=== PATIENT | female | born 1955 | race Caucasian/White ===

== ENCOUNTER 2019-12-28 10:00 | Outpatient (RCR) | payer OTHER, SELFPAY | END 2020-01-09 23:59 | LOC: NS 10:00 | PROVIDERS: PCP Family Medicine; Visit Provider Family Medicine | DX: Z71.3 Dietary counseling and surveillance (principal); E66.9 Obesity, unspecified; Z68.41 Body mass index [BMI] 40.0-44.9, adult | CPT/HCPCS: 97802; 97803 ==

== ENCOUNTER 2020-01-25 11:30 | Outpatient (RCR) | payer OTHER, SELFPAY | END 2020-02-08 23:59 | LOC: NS 11:30 | PROVIDERS: PCP Family Medicine; Visit Provider Family Medicine | DX: Z71.3 Dietary counseling and surveillance (principal); E66.9 Obesity, unspecified; Z68.41 Body mass index [BMI] 40.0-44.9, adult | CPT/HCPCS: 97803 ==

== ENCOUNTER 2020-03-06 10:00 | Outpatient (RCR) | payer OTHER, SELFPAY | END 2020-03-06 23:59 | disposition home or self-care (01) | LOC: NS 10:00 | PROVIDERS: PCP Family Medicine; Visit Provider Family Medicine | DX: Z71.3 Dietary counseling and surveillance (principal); E66.9 Obesity, unspecified; Z68.41 Body mass index [BMI] 40.0-44.9, adult | CPT/HCPCS: 97803 ==

== ENCOUNTER 2021-07-22 09:20 | Observation (INO) | payer OTHER, SELFPAY ==
[2021-07-22] VITALS (11 sets, daily range): BP systolic 122–158; BP diastolic 73–101; PULSE 68–88; RESP 16–21; TEMP 35.9–37.1; O2SAT 92–99; BMI 45.1; BMI 44.8
--- NOTE | 2021-07-22 09:39 | EKG12_ITS ---
Test Reason : SOB Blood Pressure : / mmHG Vent. Rate : 079 BPM Atrial Rate : 079 BPM P-R Int : 182 ms QRS Dur : 078 ms QT Int : 382 ms P-R-T Axes : 030 -06 019 degrees QTc Int : 438 ms Normal sinus rhythm Low voltage QRS (Precordial Leads) Confirmed by JUSTIN ROMERO, SUSSY ([id number]), scientific editor NIC QUIÑONES ([id number]) on 07/25/2021 10:00:11 AM Referred By: JAM Confirmed By:SUSSY ANDERSON MD
--- NOTE | 2021-07-22 09:40 | EDS_ITS ---
HPI History of Present Illness Chief Complaint: Shortness of Breath Informant: patient Onset/Context/Timing Onset: Days (7 days) Context: Gradual Onset Timing: Waxes and wanes Current Severity: Moderate Maximum Severity: Moderate Narrative Narrative: Patient presents with a 1 week history of shortness of breath. Matt aguilar states last Thursday she came home from work feeling very shaky and short of breath. She denies chest pain or palpitations. She gets significantly short of breath with any exertion. She states she has felt warm but has not measured a temperature. She recently did a home Covid test that was negative. She called her PCP but could not be seen until later this week so presented to the emergency room. [facility] Medical History Acid reflux High cholesterol Hypertension Hypothyroid Kidney stones Home Medications atenolol 50 mg PO DAILY 07/22/21 [History Last Taken Unknown] levothyroxine [Synthroid] 50 mcg PO DAILY 07/22/21 [History Last Taken Unknown] naproxen 500 mg PO BID PRN 07/22/21 [History Last Taken Unknown] omeprazole 40 mg PO DAILY 07/22/21 [History Last Taken Unknown] simvastatin 20 mg PO QHS 07/22/21 [History Last Taken Unknown] Allergy/AdvReac Type Severity Reaction Status Date / Time No Known Allergies Allergy Verified 07/22/21 09:20 Surgical History H/O: hysterectomy History of knee replacement Hx of tonsillectomy Social History Smoking Status: Never smoker ROS ROS ED Constitutional Constitutional ED: Denies chills or fever(s) Eyes Eyes: Denies change in vision ENT ENT ED: Denies sore throat Cardiovascular Cardiovascular: Denies chest pain or palpitations Respiratory/Chest Respiratory/Chest: Reports dyspnea; Denies cough Gastrointestinal Gastrointestinal: Denies abdominal pain, diarrhea, nausea or vomiting Genitourinary Genitourinary ED: Denies dysuria Musculoskeletal Musculoskeletal: Denies back pain or neck pain Integumentary Denies rash Neurologic Neurologic: Denies headache(s) or weakness Allergic/Immunologic Allergic/Immunologic ED: Denies urticaria EXAM Physical Exam Const Vital Signs: 07/22/21 09:21 07/22/21 09:32 Temperature 96.7 F L 98.1 F Temperature Source Temporal Oral Pulse Rate 88 80 Respiratory Rate 17 21 H Respiratory Effort Short of Breath Labored Respiratory Depth Shallow Respiratory Pattern Tachypnea Blood Pressure 143/101 H 138/85 H Blood Pressure Mean 115 102 Pulse Ox 98 98 Oxygen Delivery Method Room Air Room Air Positive well nourished and well developed General Appearance ED: well developed HEENT Reports moist mucous membranes Eyes PERRL and EOMs intact bilaterally Neck no lymphadenopathy and supple Chest Wall inspection of chest normal and palpation of chest normal Resp normal respiratory effort and clear to auscultation bilaterally Cardio regular rate and regular rhythm GI non-tender Palpation: soft Extremity normal to inspection Extremity Narrative: 1+ bilateral lower extremity edema, symmetric General Extremety ED: Yes edema General Extremity: edema Neuro oriented x3 Sensorium / Orientation: alert Psych mental status grossly normal Skin no rashes or lesions noted MDM MDM MDM Narrative Medical decision making narrative: Lab work and chest x-ray obtained. Lab Data Attestation: I reviewed the patient's lab results. Labs: Laboratory Results - last 24 hr 07/22/21 07/22/21 07/22/21 10:00 10:35 10:35 WBC Cancelled Corrected WBC Cancelled RBC Cancelled Hgb Cancelled Hct Cancelled MCV Cancelled MCH Cancelled MCHC Cancelled RDW Std Deviation Cancelled RDW Coeff of Altaf Cancelled Plt Count Cancelled MPV Cancelled Immature Gran % (Auto) Cancelled Neut % (Auto) Cancelled Lymph % (Auto) Cancelled [place] % (Auto) Cancelled Eos % (Auto) Cancelled Baso % (Auto) Cancelled Absolute Neuts (auto) Cancelled Absolute Lymphs (auto) Cancelled Total Counted Cancelled Neutrophils % (Manual) Cancelled Band Neutrophils % Cancelled Lymphocytes % (Manual) Cancelled Monocytes % (Manual) Cancelled Eosinophils % (Manual) Cancelled Basophils % (Manual) Cancelled Metamyelocytes % Cancelled Myelocytes % Cancelled Promyelocytes % Cancelled Blast Cells % Cancelled Plasma Cell % (Manual) Cancelled Other Cells % Cancelled Nucleated RBC % Cancelled Nucleated RBCs/100 WBC Cancelled Differential Comment Cancelled Diff Path Review Cancelled Hypersegmented Neuts Cancelled Atypical Lymphocytes Cancelled Reactive Lymphocytes Cancelled Smudge Cells Cancelled Toxic Granulation Cancelled Toxic Vacuolation Cancelled Dohle Bodies Cancelled Duc Rods Cancelled Platelet Estimate Cancelled Plt Morphology Comment Cancelled RBC Morphology Cancelled Polychromasia Cancelled Hypochromasia Cancelled Poikilocytosis Cancelled Basophilic Stippling Cancelled Anisocytosis Cancelled Microcytosis Cancelled Macrocytosis Cancelled Spherocytes Cancelled Sickle Cells Cancelled Target Cells Cancelled Tear Drop Cells Cancelled Ovalocytes Cancelled Stomatocytes Cancelled Srinivasan-[place] Bodies Cancelled [place] Cells Cancelled Bite Cells Cancelled Crenated Cell Cancelled Acanthocytes (Spur) Cancelled Rouleaux Cancelled Schistocytes Cancelled D-Dimer Quant (PE/DVT) 2.25 H* Sodium 136 Potassium 4.2 Chloride 104 Carbon Dioxide 27.0 Anion Gap 5 BUN 19 H Creatinine 0.75 Estim Creat Clear Calc 66.30 Est GFR (MDRD) Af Amer 100 Est GFR (MDRD) Non-Af 83 BUN/Creatinine Ratio 25.3 H Glucose 179 H Calcium 7.9 L Troponin I High Sens 9 B-Natriuretic Peptide 07/22/21 07/22/21 10:35 10:35 WBC 12.9 H Corrected WBC RBC 4.55 Hgb 13.7 Hct 40.3 MCV 88.6 MCH 30.1 MCHC 34.0 RDW Std Deviation 46.7 H RDW Coeff of Altaf 14.7 H Plt Count 220 MPV 9.1 Immature Gran % (Auto) 0.900 Neut % (Auto) 48.5 Lymph % (Auto) 42.7 H [place] % (Auto) 6.6 Eos % (Auto) 0.1 Baso % (Auto) 1.2 H Absolute Neuts (auto) 6.3 Absolute Lymphs (auto) 5.51 H Total Counted Neutrophils % (Manual) Band Neutrophils % Lymphocytes % (Manual) Monocytes % (Manual) Eosinophils % (Manual) Basophils % (Manual) Metamyelocytes % Myelocytes % Promyelocytes % Blast Cells % Plasma Cell % (Manual) Other Cells % Nucleated RBC % 0 Nucleated RBCs/100 WBC Differential Comment COMMENT Diff Path Review Hypersegmented Neuts Atypical Lymphocytes Reactive Lymphocytes 1+ Smudge Cells Toxic Granulation Toxic Vacuolation Dohle Bodies Duc Rods Platelet Estimate Plt Morphology Comment RBC Morphology Polychromasia Hypochromasia Poikilocytosis Basophilic Stippling Anisocytosis Microcytosis Macrocytosis Spherocytes Sickle Cells Target Cells Tear Drop Cells Ovalocytes Stomatocytes Srinivasan-[place] Bodies Maxi Cells Bite Cells Crenated Cell Acanthocytes (Spur) Rouleaux Schistocytes D-Dimer Quant (PE/DVT) Sodium Potassium Chloride Carbon Dioxide Anion Gap BUN Creatinine Estim Creat Clear Calc Est GFR (MDRD) Af Amer Est GFR (MDRD) Non-Af BUN/Creatinine Ratio Glucose Calcium Troponin I High Sens B-Natriuretic Peptide 15.1 Radiography Chest X-Ray - ED: 1 View, Read by ED Physician and Chronic Changes Diagnostic Testing: Clinical Impression(s) from Imaging Studies Chest X-Ray 07/22/21 10:03 IMPRESSION: No radiographic evidence of acute cardiopulmonary disease. at 1018 Reported and signed by: Joseph Hernandez MD Electronically Signed: Joseph Hernandez MD at 10:17 EDT , Chest CTA 07/22/21 11:23 IMPRESSION: 1. No evidence of acute pulmonary embolism. 2. No acute cardiopulmonary abnormality. Individualized dose optimization techniques were used for this CT. at 1203 Reported and signed by: Joseph Hernandez MD Electronically Signed: Joseph Hernandez MD at 12:01 EDT , EKG Initial EKG: Attestation: I personally reviewed and interpreted this EKG as follows: Interpretation: Sinus Rhythm (Sinus at 79 with no acute ischemia.) Treatment and Re-Evaluation Narrative: EKG per my interpretation reveals no acute ischemia. Chest x-ray reveals no focal infiltrate. Radiology interpretation also reviewed. Lab work reveals mildly elevated white count at 12.9. No left shift noted. Chemistry studies significant for glucose of 179. Patient states she has not eaten yet today. D-dimer is elevated at 2.25. CTA of the chest is obtained and unremarkable. On repeat evaluation patient lying in bed. She does become dyspneic just with conversation. I will speak with hospitalist regarding admission as this may be cardiovascular in nature. Repeat troponin will be drawn at this time along with a hemoglobin A1c. Discharge Plan Triage Chief Complaint: Shortness of Breath ED Provider: Beth Strickland Dx/Rx/DC Orders Clinical Impression: Dyspnea Prescriptions: No Action omeprazole 40 mg capsule,delayed release(DR/EC) 40 mg PO DAILY RF: 0 levothyroxine [Synthroid] 50 mcg tablet 50 mcg PO DAILY RF: 0 simvastatin 20 mg tablet 20 mg PO QHS RF: 0 atenolol 50 mg tablet 50 mg PO DAILY RF: 0 naproxen 500 mg Tablet 500 mg PO BID PRN (Reason: Pain) RF: 0 Primary Care Provider: Waldo Barrett Referrals: Waldo Barrett MD [Primary Care Provider] - Disposition Disposition: Acute Care Hospital [facility]
--- NOTE | 2021-07-22 09:43 | NURSING ---
NO OLD EKGS
--- NOTE | 2021-07-22 10:03 | RAD_ITS ---
History: sob EXAMINATION/TECHNIQUE: XR Chest 1 View: Portable COMPARISON: None FINDINGS: LINES/DEVICES: None. LUNGS: No consolidation, edema or effusion. No pneumothorax. MEDIASTINUM AND CARDIOVASCULAR STRUCTURES: Cardiac silhouette not enlarged. Central airways and mediastinal contour are unremarkable. BONES AND SOFT TISSUES: Unremarkable. RAD/Chest 1 View (Portable) IMPRESSION: No radiographic evidence of acute cardiopulmonary disease. at 1018 Reported and signed by: Joseph Hernandez MD Electronically Signed: Joseph Hernandez MD at 10:17 EDT ,
[2021-07-22 10:47] LABS: Absolute Lymphocyte Count 5.51 X10^3/uL (0.83-4.51); Absolute Neutrophil Count 6.3 X10^3/uL (2.0-7.7); Basophil# 0.15 X10^3/uL; Basophil% 1.2 % (0-1); Eosinophil# 0.01 X10^3/uL; Eosinophils% 0.1 % (0-5); Hematocrit 40.3 % (37-47); Hemoglobin 13.7 g/dL (12.0-15.0); Lymphocyte # 5.51 X10^3/ul (0.83-4.51); Lymphocyte % 42.7 % (19-41); Mean Corpuscular Hgb 30.1 pg (27.0-32.0); Mean Corpuscular Volume 88.6 fL (81-99); Mean Platelet Vol. 9.1 fl (6.2-12.0); Monocyte# 0.85 X10^3/uL; Monocyte% 6.6 % (0-10); NRBC Flagged by Analyzer 0 % (0-5); Neutrophil # 6.28 X10^3/uL (2.7-7.7); Neutrophil % 48.5 % (47-70); POSITIVE DIFFERENTIAL YES; POSITIVE MORPHOLOGY YES; Platelet Count 220 K/mm3 (150-450); RBC Distribution Width CV 14.7 % (11.6-14.6); RBC Distribution Width SD 46.7 fl (35.1-43.9); Red Blood Count 4.55 M/mm3 (4.2-5.4); White Blood Count 12.9 K/mm3 (4.4-11.0)
[2021-07-22 10:48] LABS: Differential Indicated SCAN CRITERIA MET
[2021-07-22 11:06] LABS: Reactive Lymphocyte 1+
[2021-07-22 11:07] LABS: Anion Gap 5 (5-15); BUN 19 mg/dL (7-18); BUN/Creat Ratio 25.3 RATIO (10-20); Calcium,Total 7.9 mg/dL (8.5-10.1); Chloride 104 mmol/L (98-107); Creatinine, Serum 0.75 mg/dL (0.55-1.02); EST Glomerular Filtration Rate 83 mL/min (>60); Est Glom Filt Rate - Afr Amer 100 mL/min (>60); Glucose 179 mg/dL (74-106); Potassium 4.2 mmol/L (3.5-5.1); Sodium Level 136 mmol/L (136-145); Troponin-I HS 9 pg/mL (3.0-54.0)
[2021-07-22 11:15] LABS: D-Dimer Quantitative (DVT/PE) 2.25 FEU/ug/m (0.27-0.49)
[2021-07-22 11:20] LABS: BNP,B-Type NATRIURETIC PEPTIDE 15.1 pg/mL (0-100)
--- NOTE | 2021-07-22 11:23 | CT_ITS ---
EXAM: CT ANGIOGRAPHY CHEST WITHOUT AND WITH INTRAVENOUS CONTRAST : 1955 CLINICAL INDICATION: sob TECHNIQUE: Helically acquired angiography images were obtained of the chest without and with intravenous contrast. This CT exam was performed using one or more of the following dose reduction techniques: automated exposure control, adjustment of the mA and/or kV according to patient size, and/or use of iterative reconstruction technique. This report was created using [employer] report generation technology. MIP reconstructed images were created and reviewed. CONTRAST: IV 100mL [id number] COMPARISON: Chest radiograph July 22, 2021 FINDINGS: PULMONARY ARTERIES: Unremarkable. Normal in caliber. No evidence of pulmonary embolism. AORTA: Unremarkable. Normal in caliber. No evidence of dissection. GREAT VESSELS OF AORTIC ARCH: Unremarkable. Normal in caliber. No evidence of dissection. LUNGS AND PLEURAL SPACES: 4 mm intrapulmonary lymph node noted along the right major fissure. No mass. No pleural effusion or thickening. No pneumothorax. HEART: Unremarkable. Heart size is normal. No pericardial effusion. No signs of right heart strain, ratio of right ventricle to left ventricle measures less than 1. MEDIASTINUM: Unremarkable. No mediastinal or hilar adenopathy. Esophagus is unremarkable. No hiatal hernia. THYROID: Unremarkable. No thyroid lesions. BONES/JOINTS: Unremarkable. No suspicious lytic or blastic abnormality. CT/CTA Chest W/WO Contrast IMPRESSION: 1. No evidence of acute pulmonary embolism. 2. No acute cardiopulmonary abnormality. Individualized dose optimization techniques were used for this CT. at 1203 Reported and signed by: Joseph Hernandez MD Electronically Signed: Joseph Hernandez MD at 12:01 EDT ,
--- NOTE | 2021-07-22 12:37 | HP.PCM.HOS_ITS ---
HPI - General General Date of Admission: 07/22/21 Date of Service: 07/22/21 Chief Complaint: Shortness of breath ongoing for 1 week HPI Narrative SHILO BELTRAN, is a 65 F who presents with the above that started about a week ago. Her shortness of breath is worse with the most minimal exertion. Denied any dizziness or palpitations presyncopal feeling. Denied any history of heart disease or COPD or asthma. She is a non-smoker. He denies any fever or chills or cough orthopnea or PND. Vitals in the ED showed blood pressure 158/76, heart rate 72, SPO2 is 97% on room air, temperature 97.7 F. WBC 12.9, Hb 13.7, platelets is 220, D-dimer is 2.25. BMP is unremarkable. Troponins are 9 and 11. BNpep is 15.1. Rapid COVID-19 antigen is negative. COVID-19 PCR is pending. Chest x-ray shows no acute cardiopulmonary process. CTA of the chest is negative. [facility] Medical History Acid reflux High cholesterol Hypertension Hypothyroid Kidney stones Home Medications atenolol 50 mg PO DAILY 07/22/21 [History Last Taken Unknown] levothyroxine [Synthroid] 50 mcg PO DAILY 07/22/21 [History Last Taken Unknown] naproxen 500 mg PO BID PRN 07/22/21 [History Last Taken Unknown] omeprazole 40 mg PO DAILY 07/22/21 [History Last Taken Unknown] simvastatin 20 mg PO QHS 07/22/21 [History Last Taken Unknown] Allergy/AdvReac Type Severity Reaction Status Date / Time No Known Allergies Allergy Verified 07/22/21 09:20 Family History (Updated 07/22/21 @ 13:[address] Sylvia Sanchez MD) Mother Heart disease Father Heart disease Surgical History H/O: hysterectomy History of knee replacement Hx of tonsillectomy Social History (Updated 07/22/21 @ 13:[address] Sylvia Sancehz MD) household members: spouse Smoking Status: Never smoker substance use type: does not use ROS ROS Narrative Constitutional: Denies: Anorexia, Chills, Fever, Night Sweats, Weight Change Eyes: Denies: Blurred vision, Cataracts, Conjunctivae Inflammation, Pain, Redness, Vision Change HEENT: Denies: Difficulty Hearing, Difficulty Swallowing, Head Aches, Hearing Changes, Sinus Congestion, Sinus Drainage Cardiovascular: See HPI Respiratory: Denies: See HPI Gastrointestinal: Denies: Abdominal Pain, Nausea, Vomiting Genitourinary: Denies: Dysuria Musculoskeletal: Denies: Joint Pain, Joint stiffness, Joint swelling, Joint Tenderness Skin: Denies: Rash, Wounds Neurological: Denies: Numbness, Tingling, Focal weakness Vital Signs Vital Signs Vital Signs: 07/22/21 09:21 07/22/21 09:32 07/22/21 12:25 Temperature 96.7 F L 98.1 F 97.6 F L Temperature Source Temporal Oral Temporal Pulse Rate 88 80 72 Respiratory Rate 17 21 H 16 Respiratory Effort Short of Breath Labored Respiratory Depth Shallow Respiratory Pattern Tachypnea Blood Pressure 143/101 H 138/85 H 158/76 H Blood Pressure Mean 115 102 103 Pulse Ox 98 98 97 Oxygen Delivery Method Room Air Room Air Room Air Weight Weight: 119.1 kg Body Mass Index (BMI) 45.1 Physical Exam Narrative Physical exam: General: Alert, Oriented x3, Cooperative, No apparent distress, obese HEENT: Atraumatic Oral: Moist Mucosa Neck: Supple Lungs: Clear to auscultation Cardiovascular: HS I+II, regular, no murmurs Abdomen: Bowel Sounds Present, Soft, Non Tender Extremities: No edema Skin: No rashes, No breakdown Neurological: Grossly intact Psych/Mental Status: Appropriate Results Lab / Micro Data Result Diagrams: 07/22/21 10:35 07/22/21 10:35 Labs: Laboratory Results - last 24 hr 07/22/21 10:00: WBC Cancelled, Corrected WBC Cancelled, RBC Cancelled, Hgb Cancelled, Hct Cancelled, MCV Cancelled, MCH Cancelled, MCHC Cancelled, RDW Std Deviation Cancelled, RDW Coeff of Altaf Cancelled, Plt Count Cancelled, MPV Cancelled, Immature Gran % (Auto) Cancelled, Neut % (Auto) Cancelled, Lymph % (Auto) Cancelled, [place] % (Auto) Cancelled, Eos % (Auto) Cancelled, Baso % (Auto) Cancelled, Absolute Neuts (auto) Cancelled, Absolute Lymphs (auto) Cancelled, Total Counted Cancelled, Neutrophils % (Manual) Cancelled, Band Neutrophils % Cancelled, Lymphocytes % (Manual) Cancelled, Monocytes % (Manual) Cancelled, Eosinophils % (Manual) Cancelled, Basophils % (Manual) Cancelled, Metamyelocytes % Cancelled, Myelocytes % Cancelled, Promyelocytes % Cancelled, Blast Cells % Cancelled, Plasma Cell % (Manual) Cancelled, Other Cells % Cancelled, Nucleated RBC % Cancelled, Nucleated RBCs/100 WBC Cancelled, Differential Comment Cancelled, Diff Path Review Cancelled, Hypersegmented Neuts Cancelled, Atypical Lymphocytes Cancelled, Reactive Lymphocytes Cancelled, Smudge Cells Cancelled, Toxic Granulation Cancelled, Toxic Vacuolation Cancelled, Dohle Bodies Cancelled, Duc Rods Cancelled, Platelet Estimate Cancelled, Plt Morphology Comment Cancelled, RBC Morphology Cancelled, Polychromasia Cancelled, Hypochromasia Cancelled, Poikilocytosis Cancelled, Basophilic Stippling Cancelled, Anisocytosis Cancelled, Microcytosis Cancelled, Macrocytosis Canc elled, Spherocytes Cancelled, Sickle Cells Cancelled, Target Cells Cancelled, Tear Drop Cells Cancelled, Ovalocytes Cancelled, Stomatocytes Cancelled, Srinivasan- [place] Bodies Cancelled, [place] Cells Cancelled, Bite Cells Cancelled, Crenated Cell Cancelled, Acanthocytes (Spur) Cancelled, Rouleaux Cancelled, Schistocytes Cancelled 07/22/21 10:35: D-Dimer Quant (PE/DVT) 2.25 H* 07/22/21 10:35: Sodium 136, Potassium 4.2, Chloride 104, Carbon Dioxide 27.0, Anion Gap 5, BUN 19 H, Creatinine 0.75, Estim Creat Clear Calc 66.30, Est GFR (MDRD) Af Amer 100, Est GFR (MDRD) Non-Af 83, BUN/Creatinine Ratio 25.3 H, Glucose 179 H, Calcium 7.9 L, Troponin I High Sens 9 07/22/21 10:35: B-Natriuretic Peptide 15.1 07/22/21 10:35: WBC 12.9 H, RBC 4.55, Hgb 13.7, Hct 40.3, MCV 88.6, MCH 30.1, MCHC 34.0, RDW Std Deviation 46.7 H, RDW Coeff of Altaf 14.7 H, Plt Count 220, MPV 9.1, Immature Gran % (Auto) 0.900, Neut % (Auto) 48.5, Lymph % (Auto) 42.7 H, [place] % (Auto) 6.6, Eos % (Auto) 0.1, Baso % (Auto) 1.2 H, Absolute Neuts (auto) 6.3, Absolute Lymphs (auto) 5.51 H, Nucleated RBC % 0, Differential Comment COMMENT, Reactive Lymphocytes 1+ Micro: Microbiology 07/22/21 10:30 Nasal Secretion SARS-CoV-2 Antigen (Rapid) - Final Radiology Impression Chest X-Ray 07/22/21 10:03 IMPRESSION: No radiographic evidence of acute cardiopulmonary disease. at 1018 Reported and signed by: Joseph Hernandez MD Electronically Signed: Joseph Hernandez MD at 10:17 EDT , Chest CTA 07/22/21 11:23 IMPRESSION: 1. No evidence of acute pulmonary embolism. 2. No acute cardiopulmonary abnormality. Individualized dose optimization techniques were used for this CT. at 1203 Reported and signed by: Joseph Hernandez MD Electronically Signed: Joseph Hernandez MD at 12:01 EDT , Assessment & Plan Assessment/Plan (1) Dyspnea: QUALIFIERS: Dyspnea type: unspecified Qualified Code(s): R06.00 - Dyspnea, unspecified PLAN: 1. Dyspnea, unclear etiology for now, suspect pulmonary hypertension Patient denies any history of sleep apnea or heart or pulmonary disease She has conversational dyspnea; unremarkable clinical exam BNPep, troponins, EKG unremarkable Chest x-ray, CT of the chest is negative We will admit to PCU, monitor on telemetry, 2D echo, ABGs, Pulmonology consult 2. Hypothyroidism, continue levothyroxine 3. Dyslipidemia, continue statin 4. DVT PPx- Lovenox SC 5. Code status - DNR-CCA I discussed and explained in details the various types of CODE STATUS-full code, DNR CCA, DNR CC. Patient chose DNR-CCA. She does not want cardiopulmonary resuscitation in the event of an arrest. Time spent discussing CODE STATUS 16 minutes Charges/Coding Visit Charges OBSV E&M: 75312 Initial observation care L3 Procedures Hospitalists Procedures: [id number] Advncd Care Plan 30 Min
--- NOTE | 2021-07-22 12:51 | NURSING ---
PCU OBS NUAMAH DYSPNEA
[2021-07-22 13:23] LABS: Troponin-I HS 11 pg/mL (3.0-54.0)
[2021-07-22 13:29] LABS: Hemoglobin A1c 7.1 % (3.8-5.6)
[2021-07-22 14:01] LABS: Allen Test Positive; Base Excess 2 mmol/L (-2 to +2); Bicarbonate 25.6 mmol/L (22-26); Blood Gas Specimen Type ART; FI02 21; O2 Delivery Device Room Air; PO2 57 mmHG (75-100); SITE R Radial; SO2 91 % (95-99); Total Carbon Dioxide 27 mmol/L; pCO2 34.9 mmHg (35-45); pH 7.47 (7.35-7.45)
[2021-07-22 14:06] LABS: AST(SGOT) 70 U/L (15-37); Alanine Aminotransfer ALT/SGPT 62 U/L (13-56); Albumin, Serum 2.2 g/dL (3.2-5.0); Alkaline Phosphatase 148 U/L (45-117); Bilirubin, Direct 0.17 mg/dL (0.00-0.30); Globulin 3.9 g/dL (2.2-4.2); Protein, Total 6.1 g/dL (6.4-8.2)
[2021-07-22] MEDS: Glucerna Shake 120 ML LIQUID PO ×2 (14:55→16:55)
--- NOTE | 2021-07-22 15:19 | EX.PCM.CONCC ---
Assessment & Plan Assessment/Plan (1) Dyspnea: QUALIFIERS: Dyspnea type: unspecified Qualified Code(s): R06.00 - Dyspnea, unspecified PLAN: RECOMMENDATIONS: 1. Continue telemetry while hospitalized 2. Obtain echocardiogram. Lower extremity Dopplers if RV strain 3. Walking oximetry prior to discharge 4. Okay to continue with baseline medications 5. Possible sniff test if cardiac work-up unremarkable IMPRESSIONS: 1. Dyspnea of unclear etiology Patient does have an increased AA gradient, but has not had much of a pulmonary history to this point. Patient does not have significant wheezing on exam to suggest obstructive lung disease. Will obtain an echocardiogram for evaluation of pulmonary hypertension. Patient does have risk factors for obstructive sleep apnea, but this would have to be worked up as an outpatient. Patient should continue with telemetry. If patient does have RV strain on echocardiogram, reasonable to obtain lower extremity Dopplers for evaluation of DVT. CT PE does not show any infiltrates or mediastinal lymphadenopathy to suggest an etiology. Patient does not appear to have significant areas of atelectasis as an etiology, but chest x-ray does show an elevated left hemidiaphragm. Diaphragmatic weakness would be a concern. 2. Morbid obesity/dyslipidemia/hypothyroidism/hypertension Complicates care, management, recovery and prognosis. Patient confirmed to be a DNR Comfort Care arrest with intubation by hospitalist. Okay to continue with baseline medications from my perspective. Weight loss will be recommended, but would not explain current findings. HPI Consult Data Date of Consult: 07/22/21 HPI Narrative HPI Narrative: SHILO BELTRAN is a 65 F, with past medical history listed below, who presents to [facility] on 07/22/2021 secondary to shortness of breath over the last 7 days. Patient states that she has had 1 week of progressive shortness, anorexia and feeling shaky. Patient states that any level of exertion leads to significant worsening in shortness of breath. Patient had done a Covid test at home that was negative. Patient had called her PCP, but was not able to get in until of this week, so came to the ED for further evaluation. In the emergency department, patient was afebrile, but hypertensive at 143/101. Patient was not tachycardic and was saturating well on room air. Laboratory work-up showed an elevated D-dimer of 2.25, normal chemistries except for an elevated glucose of 179 and a leukocytosis of 12.9. BNP was within normal range at 15.1. Chest x-ray showed no acute infiltrates, but given elevated D-dimer, CTA of the chest was obtained showing no acute PE, infiltrates or mediastinal lymphadenopathy. EKG showed no acute ischemia. Patient was noted to have significant conversational dyspnea, so the decision was made to admit the patient. Patient denies any history of cardiopulmonary disease previously. Patient has not required supplemental oxygen and has never been hospitalized or gone to the ER for respiratory complaints. Patient has never been told she has asthma. Patient denies any smoking, asbestos or TB history. Patient is not reporting any rashes, fever, nausea or vomiting. Patient has had some anorexia. Patient denies any loss of taste or smell. Patient's was at the bedside. He does report labored breathing with sleep, but stops short of snoring and apneic symptoms. Patient reports she has been tired during the day. Patient has never had a PSG. Patient denies any history of previous thromboembolic disease. Patient states she has been told that she has borderline diabetes by her PCP on annual testing, but is never been placed on medications. Patient did have an ABG after coming to the floor. This was notable for an increased AA gradient and a respiratory alkalosis. Review of systems otherwise negative from a constitutional, HEENT, respiratory, cardiovascular, GI, genitourinary, musculoskeletal, skin, neurologic, psychiatric and hematologic system unless stated above. [facility] Medical History Acid reflux Diabetes High cholesterol Hypertension Hypothyroid Kidney stones Osteoporosis Home Medications atenolol 50 mg PO DAILY 07/22/21 [History Last Taken Unknown] levothyroxine [Synthroid] 50 mcg PO DAILY 07/22/21 [History Last Taken Unknown] naproxen 500 mg PO BID PRN 07/22/21 [History Last Taken Unknown] omeprazole 40 mg PO DAILY 07/22/21 [History Last Taken Unknown] simvastatin 20 mg PO QHS 07/22/21 [History Last Taken Unknown] Allergy/AdvReac Type Severity Reaction Status Date / Time No Known Allergies Allergy Verified 07/22/21 09:20 Family History Mother Heart disease Father Heart disease Surgical History H/O: hysterectomy History of knee replacement Hx of tonsillectomy Social History household members: spouse Smoking Status: Never smoker substance use type: does not use ROS ROS Narrative See HPI Physical Exam Const alert and oriented x3 General Appearance: cooperative and in distress Positive for respiratory (Slight conversational dyspnea); Negative for ill appearing HEENT normocephalic, head/scalp atraumatic and moist oral mucous membranes HEENT Narrative: Mallampati 4 Eyes PERRL, EOMs intact bilaterally and no scleral icterus Neck full ROM, no lymphadenopathy and no JVD Chest inspection of chest normal Resp normal respiratory effort and no use of accessory muscles Effort and Inspection: tachypneic and prolonged expiratory phase Auscultation: Negative for rales, rhonchi or wheezes Cardio regular rate, regular rhythm, S1 normal heart sound, S2 normal heart sound, no murmurs, no rub and no gallops GI normal to inspection, nondistended, normoactive bowel sounds Extremity no clubbing, cyanosis or edema Skin no rashes or lesions noted Neuro oriented x3, CN's II-XII intact bilaterally and moves all extremities Psych cooperative Mood & Affect: anxious Lab / Micro Data Result Diagrams: 07/22/21 10:35 07/22/21 10:35 Labs: Laboratory Results - last 24 hr 07/22/21 10:00: WBC Cancelled, Corrected WBC Cancelled, RBC Cancelled, Hgb Cancelled, Hct Cancelled, MCV Cancelled, MCH Cancelled, MCHC Cancelled, RDW Std Deviation Cancelled, RDW Coeff of Altaf Cancelled, Plt Count Cancelled, MPV Cancelled, Immature Gran % (Auto) Cancelled, Neut % (Auto) Cancelled, Lymph % (Auto) Cancelled, [place] % (Auto) Cancelled, Eos % (Auto) Cancelled, Baso % (Auto) Cancelled, Absolute Neuts (auto) Cancelled, Absolute Lymphs (auto) Cancelled, Total Counted Cancelled, Neutrophils % (Manual) Cancelled, Band Neutrophils % Cancelled, Lymphocytes % (Manual) Cancelled, Monocytes % (Manual) Cancelled, Eosinophils % (Manual) Cancelled, Basophils % (Manual) Cancelled, Metamyelocytes % Cancelled, Myelocytes % Cancelled, Promyelocytes % Cancelled, Blast Cells % Cancelled, Plasma Cell % (Manual) Cancelled, Other Cells % Cancelled, Nucleated RBC % Cancelled, Nucleated RBCs/100 WBC Cancelled, Differential Comment Cancelled, Diff Path Review Cancelled, Hypersegmented Neuts Cancelled, Atypical Lymphocytes Cancelled, Reactive Lymphocytes Cancelled, Smudge Cells Cancelled, Toxic Granulation Cancelled, Toxic Vacuolation Cancelled, Dohle Bodies Cancelled, Duc Rods Cancelled, Platelet Estimate Cancelled, Plt Morphology Comment Cancelled, RBC Morphology Cancelled, Polychromasia Cancelled, Hypochromasia Cancelled, Poikilocytosis Cancelled, Basophilic Stippling Cancelled, Anisocytosis Cancelled, Microcytosis Cancelled, Macrocytosis Cancelled, Spherocytes Cancelled, Sickle Cells Cancelled, Target Cells Cancelled, Tear Drop Cells Cancelled, Ovalocytes Cancelled, Stomatocytes Cancelled, Srinivasan-[place] Bodies Cancelled, [place] Cells Cancelled, Bite Cells Cancelled, Crenated Cell Cancelled, Acanthocytes (Spur) Cancelled, Rouleaux Cancelled, Schistocytes Cancelled 07/22/21 10:35: D-Dimer Quant (PE/DVT) 2.25 H* 07/22/21 10:35: Sodium 136, Potassium 4.2, Chloride 104, Carbon Dioxide 27.0, Anion Gap 5, BUN 19 H, Creatinine 0.75, Estim Creat Clear Calc 66.30, Est GFR (MDRD) Af Amer 100, Est GFR (MDRD) Non-Af 83, BUN/Creatinine Ratio 25.3 H, Glucose 179 H, Calcium 7.9 L, Troponin I High Sens 9 07/22/21 10:35: B-Natriuretic Peptide 15.1 07/22/21 10:35: WBC 12.9 H, RBC 4.55, Hgb 13.7, Hct 40.3, MCV 88.6, MCH 30.1, MCHC 34.0, RDW Std Deviation 46.7 H, RDW Coeff of Altaf 14.7 H, Plt Count 220, MPV 9.1, Immature Gran % (Auto) 0.900, Neut % (Auto) 48.5, Lymph % (Auto) 42.7 H, [place] % (Auto) 6.6, Eos % (Auto) 0.1, Baso % (Auto) 1.2 H, Absolute Neuts (auto) 6.3, Absolute Lymphs (auto) 5.51 H, Nucleated RBC % 0, Differential Comment COMMENT, Reactive Lymphocytes 1+ 07/22/21 12:50: Troponin I High Sens 11 07/22/21 12:50: Hemoglobin A1c 7.1 H 07/22/21 12:50: Total Bilirubin 0.60, Direct Bilirubin 0.17, AST 70 H, ALT 62 H, Alkaline Phosphatase 148 H, Total Protein 6.1 L, Albumin 2.2 L, Globulin 3.9 Micro: Microbiology 07/22/21 10:30 Nasal Secretion SARS-CoV-2 Antigen (Rapid) - Final ABG Data ABG results: ABG 07/22/21 13:53 Specimen Type ART Sample Site R Radial pH 7.47 H Bicarbonate Actual 25.6 Total CO2 27 Base Excess 2 O2 Saturation 91 L O2 % 21 ABG pCO2 34.9 L ABG pO2 57 L Danilo Test Positive O2 Delivery Device Room Air Radiology Impression Chest X-Ray 07/22/21 10:03 IMPRESSION: No radiographic evidence of acute cardiopulmonary disease. at 1018 Reported and signed by: Joseph Hernandez MD Electronically Signed: Joseph Hernandez MD at 10:17 EDT Reading Location ID and State: [address] [place] [address] Tel , Service support , Chest CTA 07/22/21 11:23 IMPRESSION: 1. No evidence of acute pulmonary embolism. 2. No acute cardiopulmonary abnormality. Individualized dose optimization techniques were used for this CT. at 1203 Reported and signed by: Josehp Hernandez MD Electronically Signed: Joseph Hernandez MD at 12:01 EDT , Charges/Coding Visit Charges Inpatient E&M: 73239 Init Hosp L2
[2021-07-22 16:44] LABS: Troponin-I HS 9 pg/mL (3.0-54.0)
[2021-07-22 17:00] LABS: Bedside Glucose 173 mg/dL (74-106)
[2021-07-22] MEDS: Insulin Lispro 100 UNIT/ML INSULN.PEN SC ×2 (17:15→21:07)
[2021-07-22] MEDS: Atorvastatin Calcium 10 MG Tablet PO (21:08)
[2021-07-22 22:31] LABS: Bedside Glucose 158 mg/dL (74-106)
[2021-07-23] VITALS (7 sets, daily range): BP systolic 136–150; BP diastolic 74–84; PULSE 80–109; RESP 16–18; TEMP 36.5–37.3; O2SAT 93–97
[2021-07-23] MEDS: Levothyroxine 50 MCG Tablet PO (05:43)
[2021-07-23] MEDS: Enoxaparin 40 MG/0.4 ML Syringe SC (05:44)
[2021-07-23 06:28] LABS: Absolute Lymphocyte Count 8.45 X10^3/uL (0.83-4.51); Absolute Neutrophil Count 6.8 X10^3/uL (2.0-7.7); Basophil# 0.15 X10^3/uL; Basophil% 0.9 % (0-1); Eosinophil# 0.01 X10^3/uL; Eosinophils% 0.1 % (0-5); Hemoglobin 12.7 g/dL (12.0-15.0); Lymphocyte # 8.45 X10^3/ul (0.83-4.51); Lymphocyte % 51.5 % (19-41); Mean Corp Hgb Conc 32.6 g/dL (32-36); Mean Corpuscular Hgb 29.1 pg (27.0-32.0); Mean Corpuscular Volume 89.2 fL (81-99); Mean Platelet Vol. 9.3 fl (6.2-12.0); Monocyte# 0.89 X10^3/uL; Monocyte% 5.4 % (0-10); NRBC Flagged by Analyzer 0 % (0-5); Neutrophil % 41.4 % (47-70); POSITIVE DIFFERENTIAL YES; POSITIVE MORPHOLOGY YES; Platelet Count 230 K/mm3 (150-450); RBC Distribution Width CV 14.7 % (11.6-14.6); RBC Distribution Width SD 47.8 fl (35.1-43.9); Red Blood Count 4.37 M/mm3 (4.2-5.4); White Blood Count 16.4 K/mm3 (4.4-11.0)
[2021-07-23 06:52] LABS: Differential Indicated SCAN CRITERIA MET
[2021-07-23] MEDS: Insulin Lispro 100 UNIT/ML INSULN.PEN SC ×2 (06:52→11:29)
[2021-07-23 06:58] LABS: Atypical Lymphocyte 1+ %
[2021-07-23 07:02] LABS: ALB/GLOB Ratio 0.5 RATIO (0.9-2.4); AST(SGOT) 65 U/L (15-37); Alanine Aminotransfer ALT/SGPT 54 U/L (13-56); Albumin, Serum 2.1 g/dL (3.2-5.0); Alkaline Phosphatase 143 U/L (45-117); Anion Gap 5 (5-15); BUN 21 mg/dL (7-18); BUN/Creat Ratio 32.9 RATIO (10-20); Calcium,Total 8.1 mg/dL (8.5-10.1); Chloride 102 mmol/L (98-107); Creatinine, Serum 0.64 mg/dL (0.55-1.02); EST Glomerular Filtration Rate 100 mL/min (>60); Est Glom Filt Rate - Afr Amer 121 mL/min (>60); Estimated Creatinine Clearance 77.69 ml/min; Globulin 3.9 g/dL (2.2-4.2); Glucose 152 mg/dL (74-106); Potassium 4.3 mmol/L (3.5-5.1); Sodium Level 134 mmol/L (136-145)
--- NOTE | 2021-07-23 07:27 | ECHOCS_ITS ---
Reason For Study: DYSPNEA/SOB Procedure This was a 2D Doppler, Color Flow transthoracic echocardiogram. The study was technically difficult. Due to body habitus. Contrast injection was performed. Exam performed portable in patient room. Left Ventricle Normal LV size. Left ventricular systolic function is normal. The estimated ejection fraction is 65 %. Diastolic function is indeterminate. No regional wall motion abnormalities noted. Right Ventricle Normal RV size. Normal systolic function. Atria Normal left atrium. Normal right atrium. No doppler evidence for ASD. Mitral Valve There is no mitral annular calcification. Normal mitral valve. Trivial mitral valve insufficiency. Tricuspid Valve Normal tricuspid valve. Trivial tricuspid valve insufficiency. Unable to estimate RV systolic pressure/pulmonary artery pressure due to technically difficult study. Aortic Valve Trisinus/trileaflet aortic valve. Mild focal aortic valve thickening. Pulmonic Valve The pulmonic valve is not well visualized. Great Vessels Normal sized aortic root. Pericardium/Pleural No pericardial effusion. Medication Diluted definity 4.5ml given slow IV push to enhance endocardial definition. MMode/2D Measurements & Calculations LVIDd: 4.1 cm IVSd: 1.2 cm Ao root diam: 3.5 cm LVIDs: 3.0 cm LVPWd: 1.2 cm FS: 25.1 % LAV(MOD-bp): 28.6 ml LA A4 area: 12.0 cm2 LA dimension(2D): 4.1 cm LAV(MOD-bp) Indexed: 13.0 ml/m2 LAV(MOD-sp2): 29.6 ml LAV(MOD-sp4): 27.1 ml Doppler Measurements & Calculations MV E max renae: 47.3 cm/sec Ao V2 max: 109.4 cm/sec LV V1 max: 106.4 cm/sec MV A max renae: 93.1 cm/sec Ao max P.8 mmHg LV V1 max P.5 mmHg MV E/A: 0.51 PA V2 max: 166.4 cm/sec ECHO/Echo Complete W/ Contrast Interpretation Summary The study was technically difficult. Contrast injection was performed. Left ventricular systolic function is normal. The estimated ejection fraction is 65 %. Trivial mitral valve insufficiency. Trivial tricuspid valve insufficiency. Mild focal aortic valve thickening. Unable to estimate RV systolic pressure/pulmonary artery pressure due to techni bony difficult study. Diastolic function is indeterminate. Ordering Physician: Laura^Sylvia^^^ Referring Physician: Waldo Barrett Performed By: Zoraida Wick, YANIV, RVT
[2021-07-23 08:02] LABS: Bedside Glucose 152 mg/dL (74-106)
--- NOTE | 2021-07-23 08:36 | PN.CC_ITS ---
Assessment & Plan Assessment/Plan (1) Dyspnea: QUALIFIERS: Dyspnea type: unspecified Qualified Code(s): R06.00 - Dyspnea, unspecified PLAN: RECOMMENDATIONS: 1. Continue telemetry while hospitalized 2. Await echocardiogram. Lower extremity Dopplers if RV strain 3. Walking oximetry prior to discharge 4. Okay to continue with baseline medications 5. Possible sniff test if cardiac work-up unremarkable 6. If cardiac work-up is negative and ambulates well on room air, okay to discharge with outpatient work-up IMPRESSIONS: 1. Dyspnea of unclear etiology Patient does have an increased AA gradient, but has not had much of a pulmonary history to this point. Patient does not have significant wheezing on exam to suggest obstructive lung disease. Will obtain an echocardiogram for evaluation of pulmonary hypertension. Patient does have risk factors for obstructive sleep apnea, but this would have to be worked up as an outpatient. Patient should continue with telemetry. Cardiac work-up is currently underway. If this is negative, patient can likely be discharged to complete work-up as an outpatient. Patient will need a PSG, complete PFT and potential sniff test. Oxygenation does appear to be improved compared to yesterday. 2. Morbid obesity/dyslipidemia/hypothyroidism/hypertension Complicates care, management, recovery and prognosis. Patient confirmed to be a DNR Comfort Care arrest with intubation by hospitalist. Okay to continue with baseline medications from my perspective. Weight loss will be recommended, but would not explain current findings. Subjective Subjective Patient overall feels subjectively slightly improved compared to yesterday. Patient does report she is concerned as her is blind so she wants everything to be done that can be done here. Patient states that she was able to make it to the chair independently and felt like this was easier today. Did discuss with hospitalist and there is discussion on the appropriate testing such as echocardiogram versus stress test. Objective Data Objective Data Vital Signs: Vital Signs Temp Pulse Resp BP Pulse Ox 37.3 C 103 H 18 136/75 H 97 07/23/21 02:00 07/23/21 07:20 07/23/21 02:00 07/23/21 02:00 07/23/21 02:00 Oxygen Delivery Method Room Air Weight: 119.3 kg Body Mass Index (BMI) 44.8 Intake & Output: Intake and Output for Last 24 Hours 07/21/21 07/22/21 07/23/21 23:59 23:59 23:59 Intake Total 420 / 420 480 / 480 Balance 420 / 420 480 / 480 Lab / Micro Data Result Diagrams: 07/23/21 06:02 07/23/21 06:02 Labs: Laboratory Results - last 24 hr 07/22/21 10:00: WBC Cancelled, Corrected WBC Cancelled, RBC Cancelled, Hgb Cancelled, Hct Cancelled, MCV Cancelled, MCH Cancelled, MCHC Cancelled, RDW Std Deviation Cancelled, RDW Coeff of Altaf Cancelled, Plt Count Cancelled, MPV Cancelled, Immature Gran % (Auto) Cancelled, Neut % (Auto) Cancelled, Lymph % (Auto) Cancelled, [place] % (Auto) Cancelled, Eos % (Auto) Cancelled, Baso % (Auto) Cancelled, Absolute Neuts (auto) Cancelled, Absolute Lymphs (auto) Cancelled, Total Counted Cancelled, Neutrophils % (Manual) Cancelled, Band Neutrophils % Cancelled, Lymphocytes % (Manual) Cancelled, Monocytes % (Manual) Cancelled, Eosinophils % (Manual) Cancelled, Basophils % (Manual) Cancelled, Metamyelocytes % Cancelled, Myelocytes % Cancelled, Promyelocytes % Cancelled, Blast Cells % Ca ncelled, Plasma Cell % (Manual) Cancelled, Other Cells % Cancelled, Nucleated RBC % Cancelled, Nucleated RBCs/100 WBC Cancelled, Differential Comment Cancelled, Diff Path Review Cancelled, Hypersegmented Neuts Cancelled, Atypical Lymphocytes Cancelled, Reactive Lymphocytes Cancelled, Smudge Cells Cancelled, Toxic Granulation Cancelled, Toxic Vacuolation Cancelled, Dohle Bodies Cancelled, Duc Rods Cancelled, Platelet Estimate Cancelled, Plt Morphology Comment Cancelled, RBC Morphology Cancelled, Polychromasia Cancelled, Hypochromasia Cancelled, Poikilocytosis Cancelled, Basophilic Stippling Ca ncelled, Anisocytosis Cancelled, Microcytosis Cancelled, Macrocytosis Cancelled, Spherocytes Cancelled, Sickle Cells Cancelled, Target Cells Cancelled, Tear Drop Cells Cancelled, Ovalocytes Cancelled, Stomatocytes Cancelled, Srinivasan-[place] Bodies Cancelled, Maxi Cells Cancelled, Bite Cells Cancelled, Crenated Cell Cancelled, Acanthocytes (Spur) Cancelled, Rouleaux Cancelled, Schistocytes Cancelled 07/22/21 10:35: D-Dimer Quant (PE/DVT) 2.25 H* 07/22/21 10:35: Sodium 136, Potassium 4.2, Chloride 104, Carbon Dioxide 27.0, Anion Gap 5, BUN 19 H, Creatinine 0.75, Estim Creat Clear Calc 66.30, Est GFR (MDRD) Af Amer 100, Est GFR (MDRD) Non-Af 83, BUN/Creatinine Ratio 25.3 H, Glucose 179 H, Calcium 7.9 L, Troponin I High Sens 9 07/22/21 10:35: B-Natriuretic Peptide 15.1 07/22/21 10:35: WBC 12.9 H, RBC 4.55, Hgb 13.7, Hct 40.3, MCV 88.6, MCH 30.1, MCHC 34.0, RDW Std Deviation 46.7 H, RDW Coeff of Altaf 14.7 H, Plt Count 220, MPV 9.1, Immature Gran % (Auto) 0.900, Neut % (Auto) 48.5, Lymph % (Auto) 42.7 H, [place] % (Auto) 6.6, Eos % (Auto) 0.1, Baso % (Auto) 1.2 H, Absolute Neuts (auto) 6.3, Absolute Lymphs (auto) 5.51 H, Nucleated RBC % 0, Differential Comment COMMENT, Reactive Lymphocytes 1+ 07/22/21 12:50: Troponin I High Sens 11 07/22/21 12:50: Hemoglobin A1c 7.1 H 07/22/21 12:50: Total Bilirubin 0.60, Direct Bilirubin 0.17, AST 70 H, ALT 62 H, Alkaline Phosphatase 148 H, Total Protein 6.1 L, Albumin 2.2 L, Globulin 3.9 07/22/21 14:00: COVID-19 (ASIA) Not Detected 07/22/21 15:50: Troponin I High Sens 9 07/22/21 16:53: POC Glucose 173 H 07/22/21 21:05: POC Glucose 158 H 07/23/21 06:02: WBC 16.4 H, RBC 4.37, Hgb 12.7, Hct 39.0, MCV 89.2, MCH 29.1, M CHC 32.6, RDW Std Deviation 47.8 H, RDW Coeff of Altaf 14.7 H, Plt Count 230, MPV 9.3, Immature Gran % (Auto) 0.700, Neut % (Auto) 41.4 L, Lymph % (Auto) 51.5 H, [place] % (Auto) 5.4, Eos % (Auto) 0.1, Baso % (Auto) 0.9, Absolute Neuts (auto) 6.8, Absolute Lymphs (auto) 8.45 H, Nucleated RBC % 0, Atypical Lymphocytes 1+ 07/23/21 06:02: Sodium 134 L, Potassium 4.3, Chloride 102, Carbon Dioxide 27.0, Anion Gap 5, BUN 21 H, Creatinine 0.64, Estim Creat Clear Calc 77.69, Est GFR (MDRD) Af Amer 121, Est GFR (MDRD) Non-Af 100, BUN/Creatinine Ratio 32.9 H, Glucose 152 H, Calcium 8.1 L, Total Bilirubin 0.50, AST 65 H, ALT 54, Alkaline Phosphatase 143 H, Total Protein 6.0 L, Albumin 2.1 L, Globulin 3.9, Albumin/Globulin Ratio 0.5 L 07/23/21 06:51: POC Glucose 152 H Micro: Microbiology 07/22/21 10:30 Nasal Secretion SARS-CoV-2 Antigen (Rapid) - Final ABG Data ABG results: ABG 07/22/21 13:53 Specimen Type ART Sample Site R Radial pH 7.47 H Bicarbonate Actual 25.6 Total CO2 27 Base Excess 2 O2 Saturation 91 L O2 % 21 ABG pCO2 34.9 L ABG pO2 57 L Danilo Test Positive O2 Delivery Device Room Air Radiography Diagnostic Testing: Radiology Impression Chest X-Ray 07/22/21 10:03 IMPRESSION: No radiographic evidence of acute cardiopulmonary disease. at 1018 Reported and signed by: Joseph Hernandez MD Electronically Signed: Joseph Hernandez MD at 10:17 EDT , Chest CTA 07/22/21 11:23 IMPRESSION: 1. No evidence of acute pulmonary embolism. 2. No acute cardiopulmonary abnormality. Individualized dose optimization techniques were used for this CT. at 1203 Reported and signed by: Joseph Hernandez MD Electronically Signed: Joseph Hernandez MD at 12:01 EDT Reading Location ID and State: [address] [place] [address] Tel , Service support , Physical Exam Const alert and oriented x3 General Appearance: cooperative, comfortable and well kempt; Negative for in distress or ill appearing HEENT normocephalic, head/scalp atraumatic and moist oral mucous membranes HEENT Narrative: Mallampati 4 Eyes PERRL, EOMs intact bilaterally and no scleral icterus Neck full ROM, no lymphadenopathy and no JVD Chest inspection of chest normal Resp normal respiratory effort and no use of accessory muscles Effort and Inspection: tachypneic and prolonged expiratory phase Auscultation: Negative for rales, rhonchi or wheezes Cardio regular rate, regular rhythm, S1 normal heart sound, S2 normal heart sound, no murmurs, no rub and no gallops GI normal to inspection, nondistended, normoactive bowel sounds Extremity no clubbing, cyanosis or edema Skin no rashes or lesions noted Neuro oriented x3, CN's II-XII intact bilaterally and moves all extremities Psych cooperative Charges/Coding Visit Charges Inpatient E&M: 46664 Subs Hosp L2
[2021-07-23] MEDS: metFORMIN HCl 500 MG Tablet PO (11:29)
[2021-07-23] MEDS: Pantoprazole Sodium 40 MG Tablet PO (11:29)
[2021-07-23] MEDS: Atenolol 50 MG Tablet PO (11:29)
[2021-07-23 11:36] LABS: Bedside Glucose 201 mg/dL (74-106)
--- NOTE | 2021-07-23 11:56 | STRESSREP_ITS ---
Stress Test Report Date: 07-23-2021 Procedure: Pharmacologic stress nuclear imaging study Indications: Shortness of breath/dyspnea on exertion Consent: Per the patient Procedure: The patient underwent pharmacologic (Regadenoson 0.4mg ) evaluation with a peak heart rate of 120 beats per minute (76%predicted maximal heart rate) and a peak blood pressure of 140/82 mmHg. The baseline ECG demonstrated sinus tachycardia. The peak pharmacologic ECG demonstrated no obvious ECG changes. There were no cardiac dysrhythmias pretest, during pharmacologic infusion, or recovery. There was no complaint of chest discomfort during pharmacologic infusion or recovery. The examination was discontinued secondary to completion of protocol. Impression: 1. Pharmacologic (Regadenoson) evaluation 2. Peak pharmacologic ECG with no obvious ECG changes. 3. There were no cardiac dysrhythmias pretest, during pharmacologic infusion, or recovery. 4. Nuclear images pending Myocardial perfusion imaging study: Technique: The patient was injected with 14.0 millicuries of technetium 99m Cardiolite and subsequently rest SPECT Cardiolite nuclear imaging was obtained in the horizontal long, vertical long, and short axis views. The patient underwent pharmacologic (Regadenoson) evaluation with a peak heart rate of 120 beats per minute (70% percent predicted maximal heart rate) and a peak blood pressure of 140/82 mmHg. The patient was injected with 41.6 millicuries of technetium 99m Cardiolite and subsequently stress SPECT Cardiolite nuclear imaging was obtained in the horizontal long, vertical long, and short axis views. A gated Cardiolite study at peak stress was obtained. Interpretation: Rest and stress SPECT Cardiolite nuclear imaging status post realignment, normalization, and attenuation correction demonstrate relative uniform tracer uptake and myocardial perfusion appearing within normal limits. There is end systolic thickening and brightening. The gated Cardiolite study demonstrates myocardial thickening and inward wall motion. The reported LVEF is 81%. Impression: 1. Rest and stress SPECT Cardiolite nuclear imaging demonstrate relative uniform tracer uptake and myocardial perfusion appearing within normal limits. 2. The gated Cardiolite study reports an LVEF of 81%. This note was generated with [employer] software. It may contain incorrect words, spelling, and punctuation that were not noted in checking the note before signing.
--- NOTE | 2021-07-23 12:42 | CASEMGMT ---
Per Leidy RN, pt does not qualify for home oxygen at this time. Andres HANNA CM
--- NOTE | 2021-07-23 13:57 | DCINST_ITS ---
Discharge Instructions Diet Discharge Diet: No restrictions Activity Discharge Activity: Return to Normal Activity Follow Up Care Test Results: Test results from this visit will be discussed in further detail at your follow-up appointment, if applicable. Discharge Plan Admission Admit Date/Time: 07/22/21 12:34 Primary Reason for Your Visit: Dyspnea Attending Provider: Sylvia Sanchez Primary Care Provider: Waldo Barrett Consulting Providers: Kevan Lei ; Eder Brice ; Angela La NP Instructions Additional Instructions / Restrictions: You have been prescribed Metformin for diabetes. Start with Metformin 500 mg p.o. daily for couple of days and increase to 500 mg p.o. twice daily. You have also been given a prescription for glucometer. Check your blood sugar at least 2 times a day; morning and evening. Follow-up with your primary care doctor within 2 weeks. Follow-up also with the pulmonology nurse practitioner in 2 weeks. Discharge Orders/Prescriptions Prescriptions: New metformin 500 mg Tablet 500 mg PO BID 30 Days Qty: 60 RF: 0 Continued omeprazole 40 mg capsule,delayed release(DR/EC) 40 mg PO DAILY RF: 0 levothyroxine [Synthroid] 50 mcg tablet 50 mcg PO DAILY RF: 0 simvastatin 20 mg tablet 20 mg PO QHS RF: 0 atenolol 50 mg tablet 50 mg PO DAILY RF: 0 Discontinued naproxen 500 mg Tablet 500 mg PO BID PRN (Reason: Pain) RF: 0 Other Ambulatory Orders: Glucometer (Routine) Location: None Selected Ordered By: Dr. Sylvia Sanchez Referrals / Follow Up: Waldo Barrett MD [Primary Care Provider] - Within 2 Weeks Angela La NP, [employer] PROSPECTING SUPERVISOR-C [Nurse Practitioner] - Within 2 Weeks Disposition Disposition (needs filled in before D/C Order can be placed): Home, Self Care
--- NOTE | 2021-07-23 14:03 | DS.PCM_ITS ---
Providers Date of Admission: 07/22/21 Primary Care Physician: Dr. Waldo Barrett MD Consultations 07/22/21 13:34 Consult: Glazing Department Supervisor / Pulmonary Medicine Routine Consulting Provider: Pulmonary Medicine iron Hutchins Reason for Consult: Hypoxia EMERGENT Consult: No MD Notified: Yes Date Notified: 07/22/21 Time Notified: 13:46 Method of Notification: Text Reason For Visit: SOB Diagnosis Discharge Diagnosis (1) Dyspnea: Status: Acute Code(s): R06.00 - Dyspnea, unspecified Qualifiers: Dyspnea type: unspecified Qualified Code(s): R06.00 - Dyspnea, unspecified (2) Diabetes mellitus, type 2: Status: Acute Code(s): E11.9 - Type 2 diabetes mellitus without complications Medications at Discharge Home Medications atenolol 50 mg PO DAILY 07/22/21 levothyroxine [Synthroid] 50 mcg PO DAILY 07/22/21 omeprazole 40 mg PO DAILY 07/22/21 simvastatin 20 mg PO QHS 07/22/21 metformin 500 mg PO BID 30 Days #60 tab 07/23/21 Hospital Course Operations None Procedures 2-D Echocardiogram and Nuclear stress test Summary of Care Provided Minutes Spent on Discharge: 35 Hospital Course: 65-year-old female with past medical history of hypothyroidism, obesity, hypertension, hyperlipidemia who comes in with complaints of progressive shortness of breath ongoing for about 1 week. She is short of breath with the least activity. Denied any chest pain or dizziness or palpitations orthopnea or PND. Her shortness of breath usually gets better when she takes a rest. In the ED, she was found to have conversational dyspnea. She however was saturating well at rest. Her vitals were stable except slight elevation in blood pressure. Her chest x-ray was unremarkable for acute cardiopulmonary disease. She had elevated D-dimer of 2.25. CTA of the chest was negative for acute PE. Patient's admitting EKG showed normal sinus rhythm. No acute ST changes. Troponins x2 in the ED were negative. Patient was admitted to the progressive care unit under observation status. She was monitored overnight with no hypoxia. There was a suspicion for probable pulmonary hypertension with probable ELIZA. Pulmonology was consulted. 2D echo as well as stress test was done. Her EF was 65%, normal LV systolic function, trivial valve disease, her RVSP was unable to be measured because it was a technically difficult study. Patient's nuclear stress test was also unremarkable. Patient was evaluated for oxygen with ambulation and did not require oxygen. She will follow-up with the pulmonology nurse practitioner within 2 weeks. Patient's HbA1c in the ED was 7.1, she was managed overnight with insulin sliding scale blood glucose checks and started on Metformin in the morning. She was continued on Metformin. She was asked to continue with Metformin for couple of days once daily and then increase to Metformin 500 mg twice daily. She was asked to follow-up with her primary care doctor within 2 weeks. Physical Exam Narrative Physical exam: General: Alert, Oriented x3, Cooperative, No apparent distress, Well developed HEENT: Atraumatic Oral: Moist Mucosa Neck: Supple Lungs: Clear to auscultation Cardiovascular: HS I+II, regular, no murmurs Abdomen: Bowel Sounds Present, Soft, Non Tender Extremities: No edema Weight / BMI Weight Weight: 119.3 kg Body Mass Index (BMI) 44.8 ABG / Lab / Microbiology Data Result Diagrams: 07/23/21 06:02 07/23/21 06:02 Laboratory: Laboratory Results - last 24 hr 07/22/21 12:50: Total Bilirubin 0.60, Direct Bilirubin 0.17, AST 70 H, ALT 62 H, Alkaline Phosphatase 148 H, Total Protein 6.1 L, Albumin 2.2 L, Globulin 3.9 07/22/21 14:00: COVID-19 (ASIA) Not Detected 07/22/21 15:50: Troponin I High Sens 9 07/22/21 16:53: POC Glucose 173 H 07/22/21 21:05: POC Glucose 158 H 07/23/21 06:02: WBC 16.4 H, RBC 4.37, Hgb 12.7, Hct 39.0, MCV 89.2, MCH 29.1, MCHC 32.6, RDW Std Deviation 47.8 H, RDW Coeff of Altaf 14.7 H, Plt Count 230, MPV 9.3, Immature Gran % (Auto) 0.700, Neut % (Auto) 41.4 L, Lymph % (Auto) 51.5 H, [place] % (Auto) 5.4, Eos % (Auto) 0.1, Baso % (Auto) 0.9, Absolute Neuts (auto) 6.8, Absolute Lymphs (auto) 8.45 H, Nucleated RBC % 0, Atypical Lymphocytes 1+ 07/23/21 06:02: Sodium 134 L, Potassium 4.3, Chloride 102, Carbon Dioxide 27.0, Anion Gap 5, BUN 21 H, Creatinine 0.64, Estim Creat Clear Calc 77.69, Est GFR (MDRD) Af Amer 121, Est GFR (MDRD) Non-Af 100, BUN/Creatinine Ratio 32.9 H, Glucose 152 H, Calcium 8.1 L, Total Bilirubin 0.50, AST 65 H, ALT 54, Alkaline Phosphatase 143 H, Total Protein 6.0 L, Albumin 2.1 L, Globulin 3.9, Albumin/Globulin Ratio 0.5 L 07/23/21 06:51: POC Glucose 152 H 07/23/21 11:28: POC Glucose 201 H Microbiology: Microbiology 07/22/21 10:30 Nasal Secretion SARS-CoV-2 Antigen (Rapid) - Final Radiography Diagnostic Testing: Radiology Impression Echocardiogram 07/23/21 07:27 Interpretation Summary The study was technically difficult. Contrast injection was performed. Left ventricular systolic function is normal. The estimated ejection fraction is 65 %. Trivial mitral valve insufficiency. Trivial tricuspid valve insufficiency. Mild focal aortic valve thickening. Unable to estimate RV systolic pressure/pulmonary artery pressure due to technically difficult study. Diastolic function is indeterminate. Ordering Physician: All^^^ Referring Physician: Waldo Barrett Performed By: Zoraida Wick, YANIV, RVT D/C Instructions Discharge Diet: No restrictions Meaningful Use Info Meaningful Use Diagnoses (Choose all that apply): None applicable Discharge Plan Admission Admit Date/Time: 07/22/21 12:34 Primary Reason for Your Visit: Dyspnea Attending Provider: Sylvia Sanchez Primary Care Provider: Waldo Barrett Consulting Providers: Kevan Lei ; Eder Brice ; Angela La NP Instructions Additional Instructions / Restrictions: You have been prescribed Metformin for diabetes. Start with Metformin 500 mg p.o. daily for couple of days and increase to 500 mg p.o. twice daily. You have also been given a prescription for glucometer. Check your blood sugar at least 2 times a day; morning and evening. Follow-up with your primary care doctor within 2 weeks. Follow-up also with the pulmonology nurse practitioner in 2 weeks. Discharge Orders/Prescriptions Prescriptions: New metformin 500 mg Tablet 500 mg PO BID 30 Days Qty: 60 RF: 0 Continued omeprazole 40 mg capsule,delayed release(DR/EC) 40 mg PO DAILY RF: 0 levothyroxine [Synthroid] 50 mcg tablet 50 mcg PO DAILY RF: 0 simvastatin 20 mg tablet 20 mg PO QHS RF: 0 atenolol 50 mg tablet 50 mg PO DAILY RF: 0 Discontinued naproxen 500 mg Tablet 500 mg PO BID PRN (Reason: Pain) RF: 0 Other Ambulatory Orders: Glucometer (Routine) Location: None Selected Ordered By: Dr. Sylvia Sanchez Referrals / Follow Up: Waldo Barrett MD [Primary Care Provider] - Within 2 Weeks Angela La NP, CENTER MEDICAL SPECIALIST-C [Nurse Practitioner] - 07/29/21 10:15 am Disposition Disposition (needs filled in before D/C Order can be placed): Home, Self Care Charges/Coding Visit Charges OBSV E&M: 62051 Observation care discharge
== END 2021-07-23 13:51 | disposition home or self-care (01) ==
LOC: ED 12:26 → PCU 12:44
PROVIDERS: Admitting Provider Internal Medicine; Emergency Provider Emergency Medicine; PCP Family Medicine; Visit Provider Internal Medicine
DX: R06.00 Dyspnea, unspecified (principal); E11.65 Type 2 diabetes mellitus with hyperglycemia; E66.01 Morbid (severe) obesity due to excess calories; Z68.42 Body mass index [BMI] 45.0-49.9, adult; E87.3 Alkalosis; E03.9 Hypothyroidism, unspecified; E78.5 Hyperlipidemia, unspecified; I10 Essential (primary) hypertension; K21.9 Gastro-esophageal reflux disease without esophagitis; Z79.899 Other long term (current) drug therapy; Z79.890 Hormone replacement therapy; Z66 Do not resuscitate; Z20.822 Contact with and (suspected) exposure to COVID-19
CPT/HCPCS: 36415; 36600; 71045; 71275; 78452; 80048; 80053; 80076; 82803; 82962; 83036; 83880; 84484; 85025; 85379; 87635; 87811; 93005; 93017; 93306; 96372; 97802; 97803; 99218; 99251; 99285; A9500; Q9957; Q9967; A4216; C8929; G0378; G0463; J2785; U0003; U0005

== ENCOUNTER 2021-08-20 20:00 | Outpatient (CLI) | payer OTHER, SELFPAY | END 2021-08-20 23:59 | disposition home or self-care (01) | PROVIDERS: PCP Family Medicine; Visit Provider Nurse Practitioner Acute Care | DX: G47.10 Hypersomnia, unspecified (principal) | CPT/HCPCS: 95810 ==

== ENCOUNTER → 2021-09-23 | Outpatient (CLI) | payer OTHER, SELFPAY ==
--- NOTE | 2021-09-23 13:41 | PFT ---
INTRODUCTION: The patient is a 66-year-old female that presents for pulmonary function studies secondary to a diagnosis of dyspnea. Respiratory therapy reported good patient effort. Bronchodilators were used during testing. INTERPRETATION: Forced expiration spirometry demonstrates no evidence of a large airways obstructive ventilatory defect. There was a significant response to aerosolized bronchodilators. Spirograms are of good quality and plateau normally. Body plethysmography was performed and reveals lung volumes to be within normal limits. Diffusing capacity by single breath CO is reduced at 57% of predicted. IMPRESSION: Stigmata of small airways disease with significant bronchodilator response and moderate reduction in diffusing capacity.
== END | disposition home or self-care (01) ==
LOC: PSN 07:47
PROVIDERS: PCP Family Medicine; Visit Provider Nurse Practitioner Acute Care
DX: R06.00 Dyspnea, unspecified (principal)
CPT/HCPCS: 94060; 94726; 94729

== ENCOUNTER → 2021-10-03 | Outpatient (CLI) | payer OTHER, SELFPAY ==
[2021-10-03 13:15] VITALS: PULSE 51; PULSE 59; PULSE 76; PULSE 77; PULSE 78; PULSE 79; O2SAT 94; O2SAT 95; O2SAT 96; O2SAT 97; O2SAT 98
--- NOTE | 2021-10-03 15:32 | PCM.PSN.6M ---
PSN 6 Minute Walk Test 6 Minute Walk Test 6 Minute Walk Test: 6 Minute Walk Test PSN:6-Minute Walk Test Start: 10/03/21 13:14 Freq: Status: Active Protocol: [id number].6MINW Document 10/03/21 13:15 [email or web address] (Rec: 10/03/21 13:17 [email or web address] [id number]) 6 Minute Walk Test Date Performed 10/03/21 Time Performed 13:00 Height 5 ft 4 in Weight: 108.862 kg Weight in Pounds 240.[address]: Angela La HOUSING GRANT ANALYST Assistive device used: None Pre-test Oxygen Delivery Method Room Air Pulse Ox (%) 98 Pulse Rate (60-100 beats/min) 51 L Dyspnea Caio Scale (0-10) 0 Exertion Caio Scale (6-20) 6 1st minute Oxygen Delivery Method Room Air Pulse Ox (%) 96 Pulse Rate (60-100 beats/min) 79 2nd minute Oxygen Delivery Method Room Air Pulse Ox (%) 96 Pulse Rate (60-100 beats/min) 79 3rd minute Oxygen Delivery Method Room Air Pulse Ox (%) 95 Pulse Rate (60-100 beats/min) 77 4th minute Oxygen Delivery Method Room Air Pulse Ox (%) 96 Pulse Rate (60-100 beats/min) 78 5th minute Oxygen Delivery Method Room Air Pulse Ox (%) 97 Pulse Rate (60-100 beats/min) 76 6th minute Oxygen Delivery Method Room Air Pulse Ox (%) 94 Pulse Rate (60-100 beats/min) 77 Dyspnea Caio Scale (0-10) 2 Exertion Caio Scale (6-20) 12 Post-test Oxygen Delivery Method Room Air Pulse Ox (%) 98 Pulse Rate (60-100 beats/min) 59 L Full Laps Walked 16 Partial Lap, Number of Tiles Walked 10 Total Distance Walked (ft) 954 Interpretation Interpretation: The patient was able to ambulate 954 feet over the course of 6 minutes on room air with no assistive devices or breaks. The patient experienced no significant desaturation or tachycardia during testing. These findings are consistent with a musculoskeletal limitation exercise tolerance. Recommendations Recommendations: No supplemental oxygen is indicated at this time.
== END | disposition home or self-care (01) ==
LOC: PSN 12:47
PROVIDERS: PCP Family Medicine; Referring Provider Nurse Practitioner Acute Care; Visit Provider Nurse Practitioner Acute Care
DX: R06.00 Dyspnea, unspecified (principal)
CPT/HCPCS: 94618

== ENCOUNTER → 2022-10-29 | Outpatient (CLI) | payer MEDICARE, SELFPAY ==
--- NOTE | 2022-10-30 05:39 | PFTCOMP_ITS ---
COMPLETE PULMONARY FUNCTION TEST INTERPRETATION Brief HPI: Patient is a 67-year-old female, currently under the care of myself, who presents to [facility] for complete pulmonary function tests secondary to diagnosis of dyspnea. Respiratory therapist reports good effort and reproducible results. Interpretation: Forced expiration spirometry shows no large airways obstructive ventilatory defect with an FEV1 of 80% predicted. There is no significant bronchodilator response by strict ATS criteria. Spirograms are of good quality and plateau slowly, indicating slowly emptying areas of the lungs. The respiratory flow volume loop shows a normal pattern. Lung volumes by body plethysmography show a decreased total lung capacity at 3.34 L, 69% predicted. All other lung volumes are reduced symmetrically. Diffusion capacity by carbon monoxide is normal at 84% predicted. The airway resistance is normal. Compared to previous pulmonary function tests from 09/23/2021, there is been no change in spirometry, but lung volumes are significantly reduced. DLCO has improved significantly by 44%. Impression: Mild restrictive ventilatory defect with significant improvement in DLCO compared to previous
== END | disposition home or self-care (01) ==
LOC: PSN 09:03
PROVIDERS: Referring Provider Internal Medicine Critical Care Medicine; Visit Provider Internal Medicine Critical Care Medicine
DX: R06.00 Dyspnea, unspecified (principal)
CPT/HCPCS: 94060; 94726; 94729

== ENCOUNTER 2023-05-08 05:32 | Emergency (ER) | payer MEDICARE, SELFPAY ==
[2023-05-08 05:33] VITALS: BP 194/81; PULSE 60; RESP 26; TEMP 36.5; O2SAT 100; BMI 36.6
--- NOTE | 2023-05-08 06:01 | CT_ITS ---
STUDY: CT ABDOMEN AND PELVIS WITH CONTRAST - URINARY TRACT REASON FOR EXAM: Female, 67 years old. Abdominal pain RADIATION DOSAGE (If Supplied By Facility): CTDIvol = ( 21.66 ) mGy, DLP = ( 1259.37 ) mGycm TECHNIQUE: IV 100mL Isovue-370 was administered. Transaxial images were obtained from the dome of the diaphragm to the symphysis pubis subsequent to intravenous contrast administration. Multiplanar coronal and sagittal images were reformatted. Individualized Dose Optimization Techniques Were Used For This CT. COMPARISON: CT of the chest dated July 22, 2021 FINDINGS: The visualized lung bases are unremarkable. The visualized portions of the heart are within normal limits. Normal liver. The gallbladder is mildly distended. Normal spleen. Normal pancreas. Normal bilateral adrenal glands. Normal visualized stomach. Normal small intestine. Normal colon. The appendix is visualized and appears normal. There is diffuse atherosclerotic calcification of the abdominal aorta, without a demonstrated aneurysm. No retroperitoneal adenopathy. Normal right kidney. There is a left renal cyst. Normal urinary bladder. Normal abdominal wall. There are diffuse degenerative changes of the visualized lumbar spine. There is a grade 1 anterior spondylolisthesis of L4 on L5. CT/Abdomen/Pelvis W IV Cont ONLY IMPRESSION: Distended gallbladder, consider right upper quadrant ultrasound for further characterization. Atherosclerosis. Electronically Signed: Jessica Velásquez MD at 8:07 EST ,
--- NOTE | 2023-05-08 06:03 | ED.VIS.GI ---
HPI HPI - GI History of Present Illness Chief Complaint: Abd Pain Narrative Narrative: 67-year-old female presenting with initial complaint of upper back pain. She states she was laying on the couch and noticed that it does states she is going to have pain to the left upper back. She thought she just laid on it wrong. Patient was at her daughter's house at that time. Patient states that she started to drive home and started to have some abdominal pain and points to the bilateral lower quadrants. She describes these areas as an ache. They are not sharp or stabbing. No nausea burning or pressure-like. She took a an Aleve prior to arrival. This did not help her symptoms. She states she currently feels nauseous. No fevers or chills. She reports cold-like symptoms for the last 4 days and states that her symptoms were sinus symptoms. She states mostly rhinorrhea. She had not a cough or fever. [facility] History Acid reflux Diabetes High cholesterol Hypertension Hypothyroid Kidney stones Osteoporosis Home Medications atenolol 50 mg tablet 50 mg PO DAILY blood pressure 07/22/21 [History Last Taken Unknown] levothyroxine 50 mcg tablet (Synthroid) 50 mcg PO DAILY thyroid 07/22/21 [History Last Taken Unknown] omeprazole 40 mg capsule,delayed release 40 mg PO DAILY reflux 07/22/21 [History Last Taken Unknown] ondansetron 4 mg disintegrating tablet 4 mg PO Q8H PRN PRN Nausea #14 tabs 05/08/23 [Rx Last Taken Unknown] Allergy/AdvReac Type Severity Reaction Status Date / Time Penicillins Allergy Intermediate Shortness Verified 05/08/23 05:37 of breath Family History Mother Heart disease Father Heart disease Surgical History H/O: hysterectomy History of knee replacement Hx of tonsillectomy Social History household members: spouse Smoking Status: Never smoker Electronic Cigarette Use: not used second hand exposure: No alcohol intake: never substance use type: does not use ROS ROS ED Constitutional Constitutional ED: Denies chills, fever(s) or sweats Eyes Eyes: Denies blurry vision or change in vision ENT ENT ED: Denies ear pain or sore throat Cardiovascular Cardiovascular: Denies chest pain, palpitations or racing heartbeat Respiratory/Chest Respiratory/Chest: Denies cough, dyspnea or sputum Gastrointestinal Gastrointestinal: Reports abdominal pain, nausea and vomiting; Denies constipation or diarrhea Genitourinary Genitourinary ED: Denies dysuria, hematuria or urinary frequency Musculoskeletal Musculoskeletal: Reports back pain; Denies arthralgias, myalgias or neck pain Integumentary Denies abscess, Abrasions or rash Neurologic Neurologic: Denies headache(s), paresthesias or weakness Psychiatric Psychiatric: Denies anxiety, depression, suicidal ideation or suicidal thoughts Endocrine Endocrinology: Denies polydipsia or polyuria EXAM Physical Exam Const Vital Signs: 05/08/23 05:33 Temperature 97.7 F L Temperature Source Oral Pulse Rate 60 Respiratory Rate 26 H Blood Pressure 194/81 H Blood Pressure Mean 118 Pulse Ox 100 Oxygen Delivery Method Room Air Positive well nourished General Appearance ED: NAD; Negative for pallor HEENT Reports moist mucous membranes normocephalic and atraumatic Eyes PERRL and EOMs intact bilaterally Resp normal respiratory effort Auscultation: Negative for rales, rhonchi or wheezes Cardio regular rate and regular rhythm GI GI Narrative: Tenderness to palpation in the right lower quadrant greater than left lower quadrant. No CVA tenderness. Back/Spine Back/Spine Narrative: Tenderness to palpation in the left lower thoracic paraspinal musculature. No CVA tenderness. No midline spinal tenderness, deformity, step-off. Neuro CN's II-XII intact bilaterally, moves all extremities and no sensory deficits noted Sensorium / Orientation: alert, oriented to person, oriented to place and oriented to time Motor Exam: strength 5/5 throughout Psych mental status grossly normal Skin no wounds General Skin Exam: Negative for jaundice or pallor MDM MDM MDM Narrative Medical decision making narrative: Patient having pain in the upper back as well as nausea differential for this is I have a low suspicion for ACS as this is reproducible to light touch. I will obtain an EKG and troponin as part of the workup today. Patient also having abdominal pain with nausea and vomiting with pain in the right lower quadrant and left lower quadrant exam. Differential for this includes gastritis, colitis, diverticulitis, UTI, pyelonephritis, dehydration, electrolyte abnormalities, renal calculi, ureteral calculi. Patient medicated with morphine, Zofran, a liter of normal saline. EKG and high-sensitivity troponin were obtained to assess for ischemia/dysrhythmia. CBC obtained to assess white blood cell count, hemoglobin, platelets. CMP to assess liver function, renal function, electrolytes. Lipase to assess for pancreatitis. Urinalysis to assess for UTI. Will obtain CT of the abdomen pelvis with IV contrast. CBC shows white blood cell count of 12.2. Hemoglobin stable 14.9. Renal function and electrolytes within normal limits. LFTs are unremarkable. AST slightly elevated but is been elevated in the past. High-sensitivity troponin negative. EKG on my interpretation shows sinus bradycardia with ventricular to 45 bpm. On reevaluation the patient is comfortable. CT of the abdomen pelvis showed mild distention of gallbladder with the patient does not have any pain in the right upper quadrant. Symptoms not consistent with gallbladder disease and her LFTs are normal. Given this I will discharge her home. She is getting prescription for Zofran. Return precautions were discussed. Impression: 1. Abdominal pain 2. Nausea/vomiting Lab Data Attestation: I reviewed the patient's lab results. Labs: Laboratory Results - last 24 hr 05/08/23 06:10 WBC 12.2 H RBC 4.88 Hgb 14.9 Hct 44.6 MCV 91.4 MCH 30.5 MCHC 33.4 RDW Std Deviation 43.3 RDW Coeff of Altaf 12.8 MPV 9.7 Immature Gran % (Auto) 0.400 Neut % (Auto) 61.3 Lymph % (Auto) 31.9 [place] % (Auto) 4.6 Eos % (Auto) 1.2 Baso % (Auto) 0.6 Absolute Neuts (auto) 7.5 Absolute Lymphs (auto) 3.90 Nucleated RBC % 0 Platelet Estimate ADEQUATE Sodium 138 Potassium 3.9 Chloride 102 Carbon Dioxide 25.0 Anion Gap 11 BUN 17 Creatinine 0.91 Estim Creat Clear Calc 53.22 Est GFR (MDRD) Af Amer 79 Est GFR (MDRD) Non-Af 66 BUN/Creatinine Ratio 18.6 Glucose 175 H Calcium 9.4 Total Bilirubin 0.50 AST 40 H ALT 23 Alkaline Phosphatase 87 Troponin I High Sens 6 Total Protein 7.7 Albumin 3.4 Globulin 4.3 H Albumin/Globulin Ratio 0.8 L Lipase 28 Radiography Diagnostic Testing: Clinical Impression(s) from Imaging Studies Abdomen/Pelvis CT 05/08/23 06:01 IMPRESSION: Distended gallbladder, consider right upper quadrant ultrasound for further characterization. Atherosclerosis. Electronically Signed: Jessica Velásquez MD at 8:07 EST , Discharge Plan Triage Chief Complaint: Abd Pain ED Provider: Brigth Russ Dx/Rx/DC Orders Instructions: ED Abdominal Pain Unkn Cause Fem Prescriptions: New ondansetron 4 mg tablet,disintegrating 4 mg PO Q8H PRN PRN (Reason: Nausea) Qty: 14 0RF No Action omeprazole 40 mg capsule,delayed release(DR/EC) 40 mg PO DAILY levothyroxine [Synthroid] 50 mcg tablet 50 mcg PO DAILY atenolol 50 mg tablet 50 mg PO DAILY Primary Care Provider: David Jones Referrals: David Jones DO [Primary Care Provider] - Disposition Disposition: Home, Self Care
[2023-05-08 06:20] LABS: Absolute Neutrophil Count 7.5 X10^3/uL (2.0-7.7); Basophil# 0.07 X10^3/uL; Basophil% 0.6 % (0-1); Eosinophil# 0.15 X10^3/uL; Eosinophils% 1.2 % (0-5); Hematocrit 44.6 % (37-47); Hemoglobin 14.9 g/dL (12.0-15.0); Lymphocyte % 31.9 % (19-41); Mean Corp Hgb Conc 33.4 g/dL (32-36); Mean Corpuscular Hgb 30.5 pg (27.0-32.0); Mean Corpuscular Volume 91.4 fL (81-99); Mean Platelet Vol. 9.7 fl (6.2-12.0); Monocyte# 0.56 X10^3/uL; Monocyte% 4.6 % (0-10); NRBC Flagged by Analyzer 0 % (0-5); Neutrophil % 61.3 % (47-70); POSITIVE COUNT YES; RBC Distribution Width CV 12.8 % (11.6-14.6); RBC Distribution Width SD 43.3 fl (35.1-43.9); Red Blood Count 4.88 M/mm3 (4.2-5.4); White Blood Count 12.2 K/mm3 (4.4-11.0)
[2023-05-08] MEDS: Ondansetron 4 MG/2 ML Vial IV (06:23)
[2023-05-08] MEDS: 0.9% Normal Saline (1000mL) 1,000 ML 999 ML IV (06:23)
[2023-05-08] MEDS: Morphine 4 MG/ML Syringe IV (06:23)
--- OUTSIDE RECORDS SUMMARY | 2023-05-08 06:31 | XMS RPT_ITS | CCD ---
Author Name Unknown Address [address] [place] [address] Organization [facility] Care Team Providers Care Floor Scraper Name Role Phone JANELL ROMERO, JEROME Guardado Primary Care Physician FILEMON MONTANO DO Primary Care Physician FILEMON MONTANO DO Attending Unavailable FILEMON MONTANO DO Primary Care Unavailable FILEMON MONTANO DO Attending Unavailable FILEMON MONTANO DO Primary Care Unavailable FILEMON MONTANO DO Attending Unavailable FILEMON MONTANO DO Primary Care Unavailable FILEMON MONTANO DO Attending Unavailable FILEMON MONTANO DO Primary Care Unavailable FILEMON MONTANO DO Attending Unavailable CHARMAINE YUSUF, FILEMON E Primary Care Unavailable FILEMON MONTANO DO Attending Unavailable CHARMAINE YUSUF, FILEMON E Primary Care Unavailable Allergies Allergy Classification Reported Allergen(s) Allergy Type Date of Onset Reaction(s) Facility (5 sources) Penicillins; Translations: [penicillins] Drug allergy Difficulty breathing (finding) [facility] Work Phone: (5 sources) pregabalin; Translations: [pregabalin] Drug Allergy Vision change [facility] Work Phone: Medications Current Medications Medication Drug Class(es) Dates Sig (Normalized) Sig (Original) 0.5 ML tirzepatide 10 MG/ML Auto-Injector [Mounjaro] (1 source) Start: 04-01-2023 inject 1 dose by subcutaneous injection every week Mounjaro 5 mg/0.5 mL subcutaneous solution Dose : 5 mg =, Subcutaneous, qWeek, rotate injection sites, # 4 EA, 0 Refill(s), Pharmacy: [facility], [facility], cm, 12/29/22 9:36:00 EDT, Height, kg, 12/29/22 9:36:00 EDT, Dosing Weight Start Date: 04/01/23 Status: Ordered 0.5 ML tirzepatide 15 MG/ML Auto-Injector [Mounjaro] (1 source) Start: 03-08-2023 inject 1 dose by subcutaneous injection every week Mounjaro 7.5 mg/0.5 mL subcutaneous solution Dose : 7.5 mg =, Subcutaneous, qWeek, rotate injection sites, # 2 mL, 2 Refill(s), Pharmacy: [facility], [facility], cm, 12/29/22 9:36:00 EDT, Height, kg, 12/29/22 9:36:00 EDT, Dosing Weight Start Date: 03/08/23 Status: Ordered albuterol MDI (90 mcg/inh) CFC free inhalation aerosol (1 source) Start: 03-04-2021 take 2 puff(s) by inhalation every four hours as needed for wheezing albuterol MDI (90 mcg/inh) CFC free inhalation aerosol 2 puff(s), Inhalation, q4h, PRN as needed for wheezing, # 18 gram(s), 0 Refill(s), [facility] Acute bacterial bronchitis, 162.5, cm, 03/04/21 11:08:00 EDT, Height, kg, 03/04/21 11:08:00 EDT, Dosing Weight Start Date: 03/04/21 Status: Ordered atenolol 50 mg oral tablet (5 sources) beta-Adrenergic Christin Start: 03-24-2023 End: 09-20-2023 atenolol 50 mg oral tablet Dose : 50 mg = 1 tab(s), Oral, qDay, X 90 day(s), # 90 tab(s), 1 Refill(s), 09/20/23 1:09:00 PM EDT, Pharmacy: [facility], [facility], cm, 12/29/22 9:36:00 EDT, Height, kg, 12/29/22 9:36:00 EDT, Dosing Weight Start Date: 03/24/23 Stop Date: 09/20/23 Status: Ordered Problems Problem Classification Problem Date Documented Date Episodic/Chronic Cancer of uterus (1 source) Malignant neoplasm of endometrium of corpus uteri 10-28-2018 Chronic Cancer of uterus (4 sources) History of malignant neoplasm of endometrium 08-15-2022 Episodic Diabetes mellitus with complications (3 sources) Type 2 diabetes mellitus in obese; Translations: [Type 2 diabetes mellitus with other specified complication] Onset: 03-31-2023 09-26-2022 Chronic Diabetes mellitus without complication (5 sources) Type 2 diabetes mellitus without complication; Translations: [Type 2 diabetes mellitus without complications] Onset: 08-18-2022 08-15-2022 Chronic Disorders of lipid metabolism (4 sources) Hypercholesterolemia; Translations: [Hyperlipidemia] 10-28-2019 Chronic Esophageal disorders (5 sources) Gastroesophageal reflux disease 09-28-2018 Chronic Essential hypertension (7 sources) Hypertensive disorder; Translations: [Essential hypertension] Onset: 08-18-2022 09-28-2018 Chronic Osteoarthritis (5 sources) Osteoarthritis 2018 Chronic Other female genital disorders (1 source) Complex atypical endometrial hyperplasia 09-15-2018 Chronic Other inflammatory condition of skin (4 sources) Rosacea 03-07-2022 Chronic Other liver diseases (1 source) Elevated liver enzymes level 12-29-2022 Episodic Other liver diseases (2 sources) Abnormal levels of other serum enzymes; Translations: [Abnormal levels of other serum enzymes] Onset: 03-31-2023 Episodic Other nutritional; endocrine; and metabolic disorders (1 source) Obesity 09-15-2018 Chronic Other nutritional; endocrine; and metabolic disorders (8 sources) Body mass index 40+ - severely obese 08-15-2022 Chronic Residual codes; unclassified (4 sources) Obstructive sleep apnea syndrome 08-15-2022 Chronic Residual codes; unclassified (1 source) Swelling - edema - symptom 08-23-2020 Episodic Spondylosis; intervertebral disc disorders; other back problems (1 source) Low back pain; Translations: [Low back pain, unspecified] Episodic Thyroid disorders (5 sources) Hypothyroidism 10-28-2019 Chronic Results Test Name Value Interpretation Reference Range Facil ity Encounters Encounter Date Encounter Type Care Provider Facility Start: 03-31-2023 End: 04-05-2023 ambulatory FILEMON MONTANO DO Facility:B Start: 03-31-2023 End: 04-05-2023 Encounter for general adult medical examination without abnormal findings FILEMON MONTANO DO Facility:B Start: 03-31-2023 End: 04-04-2023 Outreach Lab FILEMON Debora MONTANO DO [facility] Start: 09-09-2022 End: 09-10-2022 ambulatory FILEMON MATHISINS DO Facility:B Start: 09-09-2022 End: 09-09-2022 Patient encounter procedure FILEMON Debora MONTANO DO [facility] Start: 09-02-2022 End: 09-03-2022 ambulatory FILEMON MONTANO DO Facility:B Start: 09-02-2022 End: 09-02-2022 Patient encounter procedure FILEMON Debora MONTANO DO [facility] Start: 08-18-2022 End: 08-23-2022 ambulatory FILEMON MONTANO DO Facility:B Start: 08-18-2022 End: 08-22-2022 Outreach Lab FILEMON MONTANO DO [facility] Start: 08-15-2022 End: 08-16-2022 ambulatory FILEMON MONTANO DO Facility:B Start: 02-15-2021 End: 04-09-2021 Physical therapy management JEROME MACIEL MD [facility] Procedures Date Procedure Procedure Detail Performing Clinician Start: 08-09-2018 Dilation and curettage JEROME AMCIEL MD Start: 08-09-2018 Hysteroscopy JEROME RAMSEY MD Immunizations Immunization Date Immunization Notes Care Provider Fa cili 12-29-2022 Pneumococcal conjuga te PCV20, polysaccharide [id number] conjugate, adjuvant, PF; Translations: [Prevnar 20] FILEMON MONTANO DO [facility] Payers Date Payer Category Payer Private Health Insurance [id number] 1955 Unknown [id number] [id number] 1955 Unknown [id number] [id number] [id number] 1955 Unknown [id number] 2.16.8 [id number] 1955 Unknown [id number] 2.16.8 [id number] 1957 Unknown [id number] 2.16.8 [id number] 1955 Unknown [id number] 2.16.8 [id number] Social History Date Type Detail Facility Start: 10-28-2019 Never smoked t obacco (finding) [facility] Sex Assigned At [facility] Medical Equipment Procedure Code Equipment Code Equipment Origin al Text Equipment Identifier Dates FDA Start: 10-12-2018 Laparoscopic TLH BSO Staging Oncology Unknown 10/12/18 Unknown Unknown FDA Start: 10-12-2018 See Instructions , True Metrix Glucose Test strips Testing once Daily Dispense 90 day supply with 3 refills DX:E11.9, # 1 EA, 3 Refill(s), Pharmacy: [facility], 162.5, cm, 09/25/21 10:36:00 EDT, Height, 112.2 Start: 10-01-2021 See Instructions , qs 3 month supply ultrafine dx: e11.9, # 1 EA, 3 Refill(s), Pharmacy: [facility], 162.5, cm, 09/25/21 10:36:00 EDT, Height, 112.2, kg, 09/25/21 10:36:00 EDT, Dosing Weight Start: 09-30-2021 TEST BLOOD SUGAR EVERY MORNING/EVENING ONCE DAILY Start: 09-30-2021 Laparoscopic TLH BSO Staging Oncology Unknown 10/12/18 Unknown Unknown FDA Start: 10-12-2018 See Instructions , True Metrix Glucose Test strips Testing once Daily Dispense 90 day supply with 3 refills DX:E11.9, # 1 EA, 3 Refill(s), Pharmacy: [facility], 162.5, cm, 09/25/21 10:36:00 EDT, Height, 112.2 Start: 10-01-2021 See Instructions , qs 3 month supply ultrafine dx: e11.9, # 1 EA, 3 Refill(s), Pharmacy: [facility], 162.5, cm, 09/25/21 10:36:00 EDT, Height, 112.2, kg, 09/25/21 10:36:00 EDT, Dosing Weight Start: 09-30-2021 TEST BLOOD SUGAR EVERY MORNING/EVENING ONCE DAILY Start: 09-30-2021 Laparoscopic TL BSO Staging Oncology Unknown 10/12/18 Unknown Unknown FDA Start: 10-12-2018 See Instructions , True Metrix Glucose Test strips Testing once Daily Dispense 90 day supply with 3 refills DX:E11.9, # 1 EA, 3 Refill(s), Pharmacy: [facility], 162.5, cm, 09/25/21 10:36:00 EDT, Height, 112.2 Start: 10-01-2021 See Instructions , qs 3 month supply ultrafine dx: e11.9, # 1 EA, 3 Refill(s), Pharmacy: [facility], 162.5, cm, 09/25/21 10:36:00 EDT, Height, 112.2, kg, 09/25/21 10:36:00 EDT, Dosing Weight Start: 09-30-2021 TEST BLOOD SUGAR EVERY MORNING/EVENING ONCE DAILY Start: 09-30-2021 Laparoscopic TLH BSO Staging Oncology Unknown 10/12/18 Unknown Unknown FDA Start: 10-12-2018 See Instructions , True Metrix Glucose Test strips Testing once Daily Dispense 90 day supply with 3 refills DX:E11.9, # 1 EA, 3 Refill(s), Pharmacy: [facility], 162.5, cm, 09/25/21 10:36:00 EDT, Height, 112.2 Start: 10-01-2021 See Instructions , qs 3 month supply ultrafine dx: e11.9, # 1 EA, 3 Refill(s), Pharmacy: [facility], 162.5, cm, 09/25/21 10:36:00 EDT, Height, 112.2, kg, 09/25/21 10:36:00 EDT, Dosing Weight Start: 09-30-2021 TEST BLOOD SUGAR EVERY MORNING/EVENING ONCE DAILY Start: 09-30-2021 Clinical Note 09-02-2022 Note Date & Type Note Facility 09-02-2022 Note ORIGINAL EXAMINATION: BONE DENSITOMETRY 09/02/2022 11:03 am TECHNIQUE: A bone density dual x-ray absorptiometry (DEXA) scan was performed of the lumbar spine and left hip. COMPARISON: None. HISTORY: ORDERING SYSTEM PROVIDED HISTORY: Reason for Exam: Osteoporosis Screening FINDINGS: T Score Left Femoral Neck: 0.3 Left Femoral Neck: 0.885 (g/cm2) T Score Left Hip: 0.6 Left Hip: 1.010 (g/cm2) T Score Lumbar Spine: 1.6 Lumbar Spine: 1.224 (g/cmd2) IMPRESSION: Normal bone mineral density by WHO criteria. *By the World Health Organization criteria: (Comparing with young normal sex matched population) - Normal: T-score at or above -1 SD (standard deviation) - Osteopenia: T-score between -1 and -2.5 SD - Osteoporosis: T-score at or below -2.5 SD Interpreted by: Jamari Olmos DO Preliminary Report By: Jamari Olmos DO Electronically signed By Jamari Olmos DO Dictated Date: 09/02/2022 11:03:51 AM Prelim Date: 09/02/2022 11:04:19 AM Sign Date: 09/02/2022 11:04:19 AM Ordering Provider: [facility] Clinical Note 09-02-2022 Note Date & Type Note Facility 09-02-2022 Note ORIGINAL EXAMINATION: BONE DENSITOMETRY 09/02/2022 11:03 am TECHNIQUE: A bone density dual x-ray absorptiometry (DEXA) scan was performed of the lumbar spine and left hip. COMPARISON: None. HISTORY: ORDERING SYSTEM PROVIDED HISTORY: Reason for Exam: Osteoporosis Screening FINDINGS: T Score Left Femoral Neck: 0.3 Left Femoral Neck: 0.885 (g/cm2) T Score Left Hip: 0.6 Left Hip: 1.010 (g/cm2) T Score Lumbar Spine: 1.6 Lumbar Spine: 1.224 (g/cmd2) IMPRESSION: Normal bone mineral density by WHO criteria. *By the World Health Organization criteria: (Comparing with young normal sex matched population) - Normal: T-score at or above -1 SD (standard deviation) - Osteopenia: T-score between -1 and -2.5 SD - Osteoporosis: T-score at or below -2.5 SD Interpreted by: Jamari Olmos DO Preliminary Report By: Jamari Olmos DO Electronically signed By Jamari Olmos DO Dictated Date: 09/02/2022 11:03:51 AM Prelim Date: 09/02/2022 11:04:19 AM Sign Date: 09/02/2022 11:04:19 AM Ordering Provider: FILEMON MONTANO [facility] Evaluation + Plan note 02-06-2021 Radiology Note Date & Type Note Facility 02-06-2021 Evaluation + Plan note Future Scheduled TestsXR Spine Lumbar AP/LAT 02/06/21 [facility] Evaluation + Plan note Radiology Note Date & Type Note Facility Evaluation + Plan note Future Appointments Appointment Date:09/26/2022 01:30:00 PM Scheduled Provider:FILEMON MONTANO DO Location:[facility] Appointment Type:PC OV Future Scheduled TestsMA Mammo Screening Bilateral w/ Mohsen 08/15/22BD Bone Density DEXA Axial Skeleton 08/15/22 [facility] Evaluation + Plan note Note Date & Type Note Facility Evaluation + Plan note Future Appointments Appointment Date:09/26/2022 01:30:00 PM Scheduled Provider:FILEMON MONTANO DO Location:[facility] Appointment Type:PC OV [facility] Evaluation + Plan note Radiology Note Date & Type Note Facility Evaluation + Plan note Future Appointments Appointment Date:04/06/2023 10:30:00 AM Scheduled Provider:FILEMON MONTANO DO Location:[facility] Appointment Type:PC OV Future Scheduled TestsMA Mammogram Diagnostic Left w/o Mohsen 09/10/22 [facility] Hospital course Narrative Note Date & Type Note Facility Hospital course Narrative No data available for this section [facility] Hospital Discharge instructions Note Date & Type Note Facility Hospital Discharge instructions No data available for this section [facility] Progress note Note Date & Type Note Facility Progress note No data available for this section [facility] Summary Purpose Family History No Family History Records Found Advance Directives No Advanced Directives Records Found Additional Source Comments Patient Care team informatio n (unrecognized section and content) Care Team Personnel Name: Shilo Silva Position: Quality Review Member Role: Pension Administrator Name: FILEMON MONTANO DO Position: P4 Physician - Primary Care Member Role: Primary Care Physician Address: Address: [address] [place] [address]- Care Team Related Persons Name: MARY BELTRAN Address: Home [address] [place], [place] [id number] Care Team Personnel Name: Shilo Silva Position: Quality Review Member Role: Pension Administrator Name: FILEMON MONTANO DO Position: P4 Physician - Primary Care Member Role: Primary Care Physician Address: Address: [address] [place] [address] Care Team Related Persons Name: MARY BELTRAN Address: Home [address] [place], [place] [id number] Care Team Personnel Name: Shilo Silva Position: Quality Review Member Role: Pension Administrator Name: FILEMON MONTANO DO Position: P4 Physician - Primary Care Member Role: Primary Care Physician Address: Address: [address] [place] [address]- Care Team Related Persons Name: MARY BELTRAN Address: Home [address] [place], [place] [id number] Care Team Personnel Name: Shilo Silva Position: Quality Review Member Role: Pension Administrator Name: FILEMON MONTANO DO Position: P4 Physician - Primary Care Member Role: Primary Care Physician Address: Address: [address] [facility] [place] [address]- Care Team Related Persons Name: MARY BELTRAN Address: Home [address] [place], [place] [address], [place] [id number] [place] INFORMATION SOURCE (unrecogn ized section and content) FOR RECORDS PERTAINING TO PATIENTS WHO ARE OR HAVE BEEN ENROLLED IN A CHEMICAL DEPENDENCY/SUBSTANCEABUSE PROGRAM, SOME INFORMATION MAY BE OMITTED. This clinical summary was aggregated from multiple sources. Caution should be exercised in using it in the provision of clinical care. This summary normalizes information from multiple sources, and as a consequence, information in this document may materially change the coding, format and clinical context of patient data. In addition, data may be omitted in some cases. CLINICAL DECISIONS SHOULD BE BASED ON THE PRIMARY CLINICAL RECORDS. [employer] provides no warranty or guarantee of the accuracy or completeness of information in this document.
[2023-05-08 06:44] LABS: ALB/GLOB Ratio 0.8 RATIO (0.9-2.4); AST(SGOT) 40 U/L (15-37); Alanine Aminotransfer ALT/SGPT 23 U/L (13-56); Albumin, Serum 3.4 g/dL (3.2-5.0); Alkaline Phosphatase 87 U/L (45-117); Anion Gap 11 (5-15); BUN 17 mg/dL (7-18); BUN/Creat Ratio 18.6 RATIO (10-20); Calcium,Total 9.4 mg/dL (8.5-10.1); Chloride 102 mmol/L (98-107); Creatinine, Serum 0.91 mg/dL (0.55-1.02); EST Glomerular Filtration Rate 66 mL/min (>60); Est Glom Filt Rate - Afr Amer 79 mL/min (>60); Estimated Creatinine Clearance 53.22 ml/min; Globulin 4.3 g/dL (2.2-4.2); Glucose 175 mg/dL (74-106); Lipase 28 U/L (13-75); Potassium 3.9 mmol/L (3.5-5.1); Protein, Total 7.7 g/dL (6.4-8.2); Sodium Level 138 mmol/L (136-145); Troponin-I HS 6 pg/mL (3.0-54.0)
[2023-05-08 06:47] LABS: Differential Indicated SCAN CRITERIA MET
[2023-05-08 07:51] LABS: Platelet Estimate ADEQUATE (ADEQ)
[2023-05-08 08:35] VITALS: BP 165/81; PULSE 68; RESP 14; O2SAT 100
== END 2023-05-08 08:35 | disposition home or self-care (01) ==
PROVIDERS: Emergency Provider Student in an Organized Health Care Education/Training Program; Visit Provider Student in an Organized Health Care Education/Training Program
DX: R10.9 Unspecified abdominal pain (principal); E11.9 Type 2 diabetes mellitus without complications; R11.2 Nausea with vomiting, unspecified; E03.9 Hypothyroidism, unspecified; K21.9 Gastro-esophageal reflux disease without esophagitis; Z79.899 Other long term (current) drug therapy
CPT/HCPCS: 74177; 80053; 83690; 84484; 85025; 93005; 96374; 96375; 99282; Q9967; A4216; J2405